=== PATIENT | male | born 1965 | race Caucasian/White ===

== ENCOUNTER 2022-05-21 08:30 | Outpatient (CLI) | payer BC, SELFPAY ==
[2022-05-21 13:45] LABS: Basophils Absolute Auto 0.04 K/uL (0.00-0.30); Basophils Percent Auto 0.6 % (0.0-3.0); Eosinophils Absolute Auto 0.14 K/uL (0.00-0.50); Eosinophils Percent Auto 2.2 % (0.0-7.0); Hematocrit 42.5 % (37.0-53.0); Hemoglobin* 14.6 gm/dL (13.5-17.5); Immature Granulocytes Abs Auto 0.02 K/uL (0.00-0.30); Lymphocytes Absolute Auto 1.72 K/uL (0.90-2.90); Mean Corpuscular HGB Conc 34 gm/dL (32-36); Mean Corpuscular Hemoglobin 30 pg (26-34); Mean Corpuscular Volume 88 fL (80-100); Monocytes Percent Auto 7.7 % (0.0-11.0); Neutrophils Absolute Auto 3.97 K/uL (1.7-7.0); Neutrophils Percent Auto 62.2 % (42.0-72.0); Platelet Count* 166 K/uL (140-440); RDW Coefficient of Variation % 13.4 % (11.5-15.5); Red Blood Count 4.84 m/uL (4.30-5.90); White Blood Count* 6.38 K/uL (4.50-11.00)
[2022-05-21 13:52] LABS: Slide Review Reflex No
[2022-05-21 14:03] LABS: Chloride* 106 mmol/L (96-114); Potassium* 4.6 mmol/L (3.6-5.1); Sodium* 141 mmol/L (135-149)
[2022-05-21 14:05] LABS: Cholesterol* 176 mg/dL (90-199)
[2022-05-21 14:06] LABS: Alanine Aminotransferase* 50 U/L (4-50); Blood Urea Nitrogen* 22 mg/dL (7-30); Calcium* 9.4 mg/dL (8.4-10.6); Carbon Dioxide* 27 mmol/L (20-32); Creatinine* 1.1 mg/dL (0.5-1.5); Estimated Glomerular Filt Rate 78 ml/min; Glucose* 88 mg/dL (60-115)
[2022-05-21 14:07] LABS: HDL Cholesterol* 33 mg/dL (>=40); LDL Cholesterol Calculated 61 mg/dL (<100)
[2022-05-21 14:10] LABS: Triglycerides* 408 mg/dL (40-149)
== END 2022-05-21 08:31 | disposition home or self-care (01) ==
PROVIDERS: PCP Family Medicine; Visit Provider Family Medicine
DX: Z01.818 Encounter for other preprocedural examination (principal); I10 Essential (primary) hypertension; E78.5 Hyperlipidemia, unspecified
CPT/HCPCS: 80048; 80061; 84460; 85025

== ENCOUNTER 2022-05-28 08:57 | Outpatient (CLI) | payer BC, SELFPAY ==
[2022-05-28 14:48] LABS: SARS PCR* Negative SARS-CoV-2 (Negative)
== END 2022-05-28 08:58 | disposition home or self-care (01) ==
PROVIDERS: PCP Family Medicine; Visit Provider Orthopaedic Surgery
DX: Z20.822 Contact with and (suspected) exposure to COVID-19 (principal)
CPT/HCPCS: 87635

== ENCOUNTER 2022-05-29 09:38 | Day surgery (SDC) | payer BC, SELFPAY ==
[2022-05-29] VITALS (15 sets, daily range): BP systolic 122–166; BP diastolic 67–99; PULSE 49–87; RESP 14–20; TEMP 36.2–36.5; O2SAT 88–99; BMI 33.8
[2022-05-29] MEDS: SODIUM CHLORIDE 0.9 % (FLUSH) 10 ML SYRINGE IVF (10:15)
[2022-05-29] MEDS: ETHYL CHLORIDE 1 APPLICATION 1 APPLIC TOPICAL (10:15)
[2022-05-29] MEDS: LACTATED RINGERS 1000 ML 1,000 ML 100 ML IV ×2 (10:15→12:01)
[2022-05-29] MEDS: CELECOXIB 200 MG CAPSULE PO (10:20)
[2022-05-29] MEDS: OXYCODONE (CR) 10 MG TAB.ER.12H PO (10:20)
[2022-05-29] MEDS: ACETAMINOPHEN 500 MG TABLET 1000 MG PO (10:20)
[2022-05-29] MEDS: fentaNYL 100 MCG/2 ML inj IVP (10:35)
[2022-05-29] MEDS: MIDAZOLAM HCL 1 MG/ML inj IVP (10:35)
--- NOTE | 2022-05-29 10:42 | W.PM.NB ---
Nerve Block Nerve Block Time Seen by Provider: 10:42 Date Seen: 05/29/22 Type of block requested by surgeon for post-operative analgesia: interscalene Side: left Time out performed: Yes Verification of patient name: Yes Verification of date of : Yes Site marking: site marked Name of person performing procedure: Deng Continuous monitoring Was continuous monitoring of O2 sat, B/P, awake overnight monitor, recorded every 15 minutes?: Yes Procedure Checklist: sterile prep, needles and gloves Ultrasound guided. Images saved: Yes Medications given in 5ml increments after negative aspiration: Ropivicaine %: 0.5 mL: 20 Needle gauge: 22 Decadron (mg): 10 Precedex (mcg): 25 Patient tolerated procedure well: Yes Block Charges Block Charge (with Pro Fee): Brachial Plexus Use of Ultrasound Machine for Block: Yes- US Guidance/pain block
--- NOTE | 2022-05-29 10:42 | SUR.PHASEII ---
TIME?OUT:?left shoulder, 1025 PT/RN/MDA?VERIFICATION?OF?SURGICAL?SITE,?PROCEDURE,?AND?CONSENT OBTAINED?PRIOR?TO?INVASIVE?PROCEDURE.
[2022-05-29] MEDS: SODIUM CHLORIDE IRRIG SOLUTION 3,000 ML, EPINEPHrine 1 MG IRRIGATION (12:34)
--- NOTE | 2022-05-29 13:07 | P.ORPRC_ITS ---
Procedure Note Date of procedure: 05/29/22 Procedure: SURGEON: Cooper Tejeda MD APARTMENT LEASING CONSULTANT: Juliet Aguirre PA-C PREOPERATIVE DIAGNOSIS: Left shoulder rotator cuff tear, biceps tendinopathy, AC joint arthrosis POSTOPERATIVE DIAGNOSIS: Left shoulder rotator cuff tear, biceps tendinopathy, AC joint arthrosis NAME OF OPERATION: Left shoulder arthroscopic subacromial decompression, distal clavicle excision, mini open rotator cuff repair, biceps tenodesis ANESTHESIA: Supraclavicular block plus general endotracheal ESTIMATED BLOOD LOSS: 5 mL COMPLICATIONS: None SPECIMENS: None DRAINS: None PREOPERATIVE ANTIBIOTICS: Ancef 2 grams INDICATIONS: The patient is a 56-year-old male with a history of left shoulder pain secondary to the above diagnoses. Despite appropriate non operative management, they continue to have symptoms. Operative intervention was recommended. The risks, benefits and expected outcomes were discussed in detail. These included but were not limited to: Infection, bleeding, injury to blood vessel or nerve, venous thromboembolism. All questions were answered to their satisfaction. PROCEDURE: A supraclavicular block was placed by Anesthesia. General anesthesia was administered. The patient was placed in the high beach chair position. The left shoulder was prepped and draped in the usual sterile fashion. The glenohumeral joint was infiltrated with 20 mL of normal saline with epinephrine. The posterior portal was established, the arthroscope was introd uced. The anterior portal was established, Diagnostic arthroscopy was performed with findings as follows: The biceps has a significant amount of intra-articular tendinopathy. The anterior, posterior and superior labrum are normal. Articular surfaces on the humeral head and glenoid are normal. There are no loose bodies. There is a full-thickness tear of the supraspinatus. The biceps was tenotomized with the arthroscopic scissors. The stump was debrided with the shaver. The arthroscope was placed in the subacromial space, the lateral portal was established. The Arthrex Largo was used to dissect the acromion free. The CA ligament was recessed off the anterior acromion, the AC joint was exposed. The acromioplasty was performed with the bur in the posterior portal. The bur was then placed in the lateral portal and the lateral and anterior aspect of the acromion were resected. The undersurface of the distal clavicle was resected through the lateral portal. Finally, the bur was placed in the anterior portal and the remainder of the distal clavicle was resected for a total of 10 mm. An accessory anterolateral portal was placed. The subacromial/subdeltoid bursa was aggressively debrided. There is a full-thickness tear of the supraspinatus. Arthroscopic instruments were removed. The accessory anterolateral portal was extended proximally and distally, subcutaneous dissection was taken with electrocautery to the deltoid. The deltoid was divided in line with its fibers. The static retractor was placed. The subacromial/subdeltoid bursa was debrided with the Peralta scissors. The insertion of the supraspinatus was elevated with the scalpel, posteriorly back to non degenerative rotator cuff. The greater tuberosity was debrided to punctate bleeding bone using the arthroscopic bur. A soft tissue biceps tenodesis was done with a # 2 FiberWire suture x2 Two Arthrex BioComposite SwiveLock anchors were placed just off the articular surface. Both limbs of the FiberWire and fiber tape were passed using the scorpion. A fiber link was placed in the leading edge of the rotator cuff x2. We tied the 2 central FiberWire sutures over the rotator cuff. We then procee ded with a lateral row of SwiveLock anchors x 2 crossing the FiberTape and incorporating the FiberWire and fiber link into each lateral row anchor. The suture in the eyelet of both the lateral row anchors was passed through the leading edge of the rotator cuff anteriorly and posteriorly and tied creating a simple suture. This provides an anatomic, watertight repair of the rotator cuff. There is no tension on the repair with the shoulder at 0? abduction. The wound was irrigated with normal saline off the pump. The deltoid was repaired with an 0 Vicryl in an interrupted [id number] fashion. Subcutaneous tissues were closed with a 3-0 Vicryl. Skin was closed with a 3-0 Monocryl in a subcuticular fashion. A dry dressing, polar care and sling were applied. Sponge and needle counts were correct x2. The patient tolerated the procedure well. There were no apparent complications. They were carefully transferred to the hospital bed and taken to the postanesthesia care unit in satisfactory condition. PLAN: The patient will be discharged to home. No active range of motion of the shoulder will be allowed for 6 weeks postoperatively. They can work on active range of motion of the elbow, wrist and fingers. They will follow up in the office next week for a wound check and an AP and transscapular Y-view of the shoulder prior to being seen.
--- NOTE | 2022-05-29 13:42 | W.ANESCHARGE ---
Anesthesia Charges Start Date/Time Anesthesia Start Date: 05/29/22 Anesthesia Start Time: 11:13 Stop Date/Time Anesthesia Stop Date: 05/29/22 Anesthesia Stop Time: 13:36 Summary Emergency: No
--- NOTE | 2022-05-29 13:58 | W.ANESCHARGE ---
Anesthesia Charges Start Date/Time Anesthesia Start Date: 05/29/22 Anesthesia Start Time: 11:13 Stop Date/Time Anesthesia Stop Date: 05/29/22 Anesthesia Stop Time: 13:36 Summary Emergency: No
== END 2022-05-29 15:33 | disposition home or self-care (01) ==
PROVIDERS: PCP Family Medicine; Visit Provider Orthopaedic Surgery
PROC: (CPT 23412; principal; 2022-05-29 11:00)
DX: M19.012 Primary osteoarthritis, left shoulder (principal); M75.22 Bicipital tendinitis, left shoulder; M75.122 Complete rotator cuff tear or rupture of left shoulder, not specified as traumatic
CPT/HCPCS: 29826; 29828; 29824; 23412; 1630; 64415; 76942; A9270; C1713; J0171; J0330; J0690; J1100; J2250; J2405; J2704; J2795; J3010; J7120; L3670

== ENCOUNTER 2022-09-16 06:23 | Day surgery (SDC) | payer BC, SELFPAY ==
[2022-09-16] VITALS (10 sets, daily range): BP systolic 138–158; BP diastolic 78–92; PULSE 65–74; RESP 14–18; TEMP 36.7; O2SAT 94–97; BMI 34.4
[2022-09-16] MEDS: BUPIVACAINE 0.5% 30 ML INJECTION (07:30)
[2022-09-16] MEDS: lidocaine HCL 2 % MULTIDOSE 20 ML VIAL INJECTION (07:30)
--- NOTE | 2022-09-16 07:50 | PM.ORPRC ---
Procedure Note Date of procedure: 09/16/22 Procedure: Preop diagnosis: Left upper extremity carpal tunnel syndrome Postop diagnosis: Left upper extremity carpal tunnel syndrome Procedure: Left upper extremity carpal tunnel release Anesthesia: Local Surgeon: Cooper Tejeda MD emergency room physician assistant: KOFFI Hernandez EBL: 5 mL Complications: None Specimens: None Drains: None Indications: The patient has a history of left upper extremity carpal tunnel syndrome symptoms. Despite appropriate nonoperative management consisting of nighttime bracing and occupational therapy they continue to have symptoms. Operative intervention was recommended. The risks, benefits alternatives and expected outcomes were discussed in detail. These included but were not limited to: Infection, bleeding, injury to blood vessel or nerve, venous thromboembolism. All questions were answered to their satisfaction. The patient was placed supine on the operating room table. Local anesthesia was established with 0.5% Marcaine without epinephrine and 2% lidocaine without epinephrine. The hand was prepped and draped in usual sterile fashion. The limb was elevated the forearm pneumatic tourniquet was inflated to 250 mm of mercury. A longitudinal incision was made centered over the radial border of the ring finger at the base of the palm. Subcutaneous dissection was sharply taken through the palmar fascia and the palmaris brevis to the transverse carpal ligament. The ligament was divided in line with the incision. Proximal and distal dissection was carried with tenotomy and Metzenbaum scissors for a wide decompression of the carpal tunnel. The tourniquet was released, bleeding was controlled with direct pressure. The wound was closed with a 3-0 nylon. A bulky dry dressing was applied, sponge and needle counts were correct x 2. The patient tolerated the procedure well, there were no apparent complications. They were sent to same day surgery in satisfactory condition. Plan: Use of the hand as tolerates. Discontinue the intraoperative dressing on postoperative day 3 and may get the wound wet as tolerates. Follow up in the office in 2 weeks for a wound check and suture removal.
== END 2022-09-16 08:18 | disposition home or self-care (01) ==
PROVIDERS: PCP Family Medicine; Visit Provider Orthopaedic Surgery
PROC: (CPT 64721; principal; 2022-09-16 07:30)
DX: G56.02 Carpal tunnel syndrome, left upper limb (principal)
CPT/HCPCS: 64721; J3490

== ENCOUNTER 2022-09-30 09:19 | Outpatient (CLI) | payer BC, SELFPAY ==
[2022-09-30 13:39] LABS: Chloride* 104 mmol/L (96-114); Sodium* 138 mmol/L (135-149)
[2022-09-30 13:40] LABS: Potassium* 4.7 mmol/L (3.6-5.1)
[2022-09-30 13:42] LABS: Alanine Aminotransferase* 36 U/L (4-50); Blood Urea Nitrogen* 20 mg/dL (7-30); Carbon Dioxide* 27 mmol/L (20-32); Cholesterol* 170 mg/dL (90-199); Creatinine* 1.1 mg/dL (0.5-1.5); Estimated Glomerular Filt Rate 77 ml/min
[2022-09-30 13:43] LABS: Calcium* 9.8 mg/dL (8.4-10.6); Glucose* 97 mg/dL (60-115); HDL Cholesterol* 34 mg/dL (>=40); LDL Cholesterol Calculated 42 mg/dL (<100)
[2022-09-30 14:13] LABS: PSA Screen* 0.36 ng/mL (0.10-4.00)
[2022-09-30 14:19] LABS: Triglycerides* 468 mg/dL (40-149)
[2022-10-04 18:02] LABS: Sex Hormone Binding Globulin 41 nmol/L (19-76); Testosterone, Free LC-MS/MS 75.3 pg/mL (47.0-244.0); Testosterone, LC-MS/MS 455 ng/dL (300-890)
== END 2022-09-30 09:20 | disposition home or self-care (01) ==
PROVIDERS: PCP Family Medicine; Visit Provider Family Medicine
DX: Z00.00 Encounter for general adult medical examination without abnormal findings (principal); E78.5 Hyperlipidemia, unspecified; I10 Essential (primary) hypertension; M10.9 Gout, unspecified; N52.9 Male erectile dysfunction, unspecified; Z12.5 Encounter for screening for malignant neoplasm of prostate
CPT/HCPCS: 80048; 80061; 84153; 84270; 84402; 84403; 84460

== ENCOUNTER 2022-12-17 07:05 | Outpatient (CLI) | payer BC, SELFPAY ==
--- NOTE | 2022-12-17 07:15 | CRLHL7_ITS ---
For Patients: As a result of the Century Cures Act, medical imaging exams and procedure reports are released immediately into your electronic medical record. You may view this report before your referring provider. If you have questions, please contact your health care provider. Indication: Chronic low back pain. Technique: Multiplanar, multisequence MRI of the lumbar spine was performed without intravenous contrast. Comparison: None relevant available. Findings: There are 5 lumbar type vertebral segments identified. The vertebral body heights are maintained without evidence of fracture. There is no discrete T1 hypointense marrow infiltrating process. The conus medullaris terminates at L1, normal. Cauda equina appears unremarkable. T12-L1: No spinal canal or neural foraminal stenosis. L1-2: No spinal canal or neural foraminal stenosis. L2-3: Mild disc height loss and desiccation. Mild disc bulge coupled ligamentum flavum thickening and facet hypertrophy resulting in mild spinal canal narrowing. Mild neural foraminal narrowing. L3-4: Moderate disc height loss and desiccation. Disc bulge with facet hypertrophy resulting in mild spinal canal narrowing. Moderate right and mild left neural foraminal narrowing. L4-5: Moderate disc height loss and desiccation. Disc bulge with superimposed central disc protrusion. There is mild spinal canal narrowing. Moderate to severe right and moderate left neural foraminal narrowing. Moderate facet arthropathy. L5-S1: Disc bulge with minimal spinal canal narrowing. Moderate neural foraminal narrowing. Moderate facet arthropathy. Mild sacroiliac joint osteoarthritis. Impression: 1. At L2-3, mild spinal canal and neural foraminal narrowing. 2. At L3-4, mild spinal canal with moderate right and mild left neural foraminal narrowing. 3. At L4-5, mild spinal canal with moderate to severe right and moderate left neural foraminal narrowing. Potential impingement of the exiting right L4 nerve. 4. At L5-S1, moderate neural foraminal narrowing. Dictated by Mark Gallegos MD @ 12/17/2022 3:00:24 PM (Electronically Signed)
--- NOTE | 2022-12-17 08:00 | CRLHL7_ITS ---
For Patients: As a result of the 21st Century Cures Act, medical imaging exams and procedure reports are released immediately into your electronic medical record. You may view this report before your referring provider. If you have questions, please contact your health care provider. HISTORY: Right and left hip pain. TECHNIQUE: Noncontrast MRI right hip. Noncontrast MRI left hip. COMPARISON: Radiographs 10/31/2022. FINDINGS: Right hip: Mild CAM morphology of the right proximal femur. There is extensive tearing of the acetabular labrum involving the anterior superior, superior lateral, posterior superior and posterior aspects of the labrum. There is grade 4 full-thickness acetabular cartilage loss anterosuperiorly with subchondral cystic change and subchondral bone marrow edema. Moderate femoral head cartilage wear (grade 2). There are paralabral cysts or periarticular ganglia present about the periphery of the superior lateral acetabulum. Mild capsular edema about the right hip. No avascular necrosis of the right femoral head. - Left hip: Mild CAM morphology of the left proximal femur. There is extensive acetabular labral tearing including the anterior, superior lateral and posterior superior labrum. There is high-grade acetabular cartilage loss anterosuperiorly with full-thickness grade 4 cartilage abnormality. High-grade chondromalacia of the adjacent anterior superior femoral head (up to grade 4). Small left hip joint effusion. There is synovitis within the hip joint space. No avascular necrosis of left femoral head. - Osseous structures: No fracture or pathologic marrow replacement process. - Musculotendinous structures and bursae: Mild peritendinous edema about the distal gluteal tendons bilaterally. No high-grade gluteal tendon tear. Tendinosis and chronic partial tearing of the right common hamstring tendon. Left common hamstring tendon is intact. The distal iliopsoas tendons are intact. - Other findings: Degenerative change of the pubic symphysis and sacroiliac joints. Degenerative changes within the lower lumbar spine. - Intrapelvic soft tissues: Enlarged prostate. No deep pelvic fluid collection. Colonic diverticulosis. IMPRESSION: 1. On the right, degenerative arthrosis of the hip. 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 Extensive labral tearing. Small paralabral cysts versus periarticular ganglion. Right hip joint capsular edema may indicate hip joint capsulitis. 2. On the left, degenerative arthrosis of the hip. Grade 4 chondromalacia of the anterior superior acetabulum and adjacent anterior superior femoral head. Extensive degenerative labral tearing. Small left hip joint effusion with synovitis. 3. Bilaterally, there is peritendinous edema associated with the distal gluteal tendons. No high-grade distal tendon tear. 4. Tendinosis of the right common hamstring tendon with partial tearing. 5. No fracture or avascular necrosis. Dictated by Corbin Mcknight MD @ 12/18/2022 2:36:39 PM (Electronically Signed)
--- NOTE | 2022-12-17 08:45 | MR_ITS ---
Patient: MARIA DEL ROSARIO GALLEGOS Facility:?[facility] Patient ID:?[id number] Site Patient ID:?[id number]. Site :?[id number] Study:?MRI-Hip Right W/O-12/17/2022 9:50:29 AM Ordering Physician:Gal Foy Final Report: HISTORY: Right and left hip pain. TECHNIQUE: Noncontrast MRI right hip. Noncontrast MRI left hip. COMPARISON: Radiographs 10/31/2022. FINDINGS: Right hip: Mild CAM morphology of the right proximal femur. There is extensive tearing of the acetabular labrum involving the anterior superior, superior lateral, posterior superior and posterior aspects of the labrum. There is grade 4 full-thickness acetabular cartilage loss anterosuperiorly with subchondral cystic change and subchondral bone marrow edema. Moderate femoral head cartilage wear (grade 2). There are paralabral cysts or periarticular ganglia present about the periphery of the superior lateral acetabulum. Mild capsular edema about the right hip. No avascular necrosis of the right femoral head. - Left hip: Mild CAM morphology of the left proximal femur. There is extensive acetabular labral tearing including the anterior, superior lateral and posterior superior labrum. There is high-grade acetabular cartilage loss anterosuperiorly with full-thickness grade 4 cartilage abnormality. High-grade chondromalacia of the adjacent anterior superior femoral head (up to grade 4). Small left hip joint effusion. There is synovitis within the hip joint space. No avascular necrosis of left femoral head. - Osseous structures: No fracture or pathologic marrow replacement process. - Musculotendinous structures and bursae: Mild peritendinous edema about the distal gluteal tendons bilaterally. No high-grade gluteal tendon tear. Tendinosis and chronic partial tearing of the right common hamstring tendon. Left common hamstring tendon is intact. The distal iliopsoas tendons are intact. - Other findings: Degenerative change of the pubic symphysis and sacroiliac joints. Degenerative changes within the lower lumbar spine. - Intrapelvic soft tissues: Enlarged prostate. No deep pelvic fluid collection. Colonic diverticulosis. IMPRESSION: 1. On the right, degenerative arthrosis of the hip. 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 Extensive labral tearing. Small paralabral cysts versus periarticular ganglion. Right hip joint capsular edema may indicate hip joint capsulitis. 2. On the left, degenerative arthrosis of the hip. Grade 4 chondromalacia of the anterior superior acetabulum and adjacent anterior superior femoral head. Extensive degenerative labral tearing. Small left hip joint effusion with synovitis. 3. Bilaterally, there is peritendinous edema associated with the distal gluteal tendons. No high-grade distal tendon tear. 4. Tendinosis of the right common hamstring tendon with partial tearing. 5. No fracture or avascular necrosis. Dictated by Corbin Mcknight MD @ 12/18/2022 2:36:39 PM Signed by:?Corbin Mcknight MD @12/18/2022 2:37:20 PM (Electronic Signature)
== END 2022-12-17 07:06 | disposition home or self-care (01) ==
LOC: MRI 07:06
PROVIDERS: PCP Family Medicine; Visit Provider Family Medicine
DX: M25.551 Pain in right hip (principal); M25.552 Pain in left hip; M16.0 Bilateral primary osteoarthritis of hip; M16.12 Unilateral primary osteoarthritis, left hip; S73.101A Unspecified sprain of right hip, initial encounter; M25.452 Effusion, left hip; M76.891 Other specified enthesopathies of right lower limb, excluding foot; M51.26 Other intervertebral disc displacement, lumbar region; M54.50 Low back pain, unspecified; G89.29 Other chronic pain; M51.27 Other intervertebral disc displacement, lumbosacral region
CPT/HCPCS: 72148; 73721

== ENCOUNTER 2023-01-15 08:08 | Outpatient (CLI) | payer BC, SELFPAY | END 2023-01-15 08:09 | disposition home or self-care (01) | PROVIDERS: PCP Family Medicine; Visit Provider Family Medicine | DX: Z01.818 Encounter for other preprocedural examination (principal); E78.5 Hyperlipidemia, unspecified; M10.9 Gout, unspecified; I10 Essential (primary) hypertension | CPT/HCPCS: 80048; 85025 ==

== ENCOUNTER 2023-01-19 15:03 | Outpatient (RCR) | payer BC, SELFPAY ==
--- NOTE | 2023-01-20 08:54 | PT.OPEX ---
PT [facility] Eval PT [facility] Outpatient Eval Start: 01/19/23 14:10 Freq: Status: Active Protocol: Document 01/19/23 16:46 [facility] (Rec: 01/19/23 16:56 [facility] [id number]) E-signed By Matthias Stuart, PT Physical Therapy Outpatient Evaluation Insurance Information Medical Diagnosis Bilateral primary hip OA Treating Diagnosis bilateral hip pain hip stiffness muscle weakness Referring MD Dr. 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 He is a small, so is getting both hips replaced at same time to be able to return to work joel. 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 He mostly wanted instruction in HEP to perform to help make his recovery easier. He has acquired most of the needed post-op equipment and will have help from his and daughter upon discharge to his [facility] home. He plans to f/u with outpatient PT post-op at [facility] in [place] Primary Functional Limitations ambulation, squatting, bending over, heavy lifting, work as a small Plan of Care Rehabilitation Potential Excellent Physical Therapy Goals In one visit, for pre-op rehab , pt will: 1) Be I with pre-op HEP: goal met 2) Demo understanding of post- op recovery and equipment needs/safety concerns: goal met Coordination/Communication With Referral Source Treatment Plan/Direct Interventions Self-Care/Home Management, Therapeutic Exercises Frequency/Duration 1 time only Patient Will Be Discharged From Therapy Independent w/HEP Evaluation Billing Untimed Code Treatment Minutes 20 Complexity Low Certification Information Physician Comment/Change : Physician NPI Number #
== END 2023-01-20 14:36 | disposition home or self-care (01) ==
PROVIDERS: PCP Family Medicine; Visit Provider Orthopaedic Surgery Sports Medicine
DX: M16.0 Bilateral primary osteoarthritis of hip (principal); Z96.643 Presence of artificial hip joint, bilateral; M25.552 Pain in left hip; M25.551 Pain in right hip; M25.659 Stiffness of unspecified hip, not elsewhere classified; M62.81 Muscle weakness (generalized); Z51.89 Encounter for other specified aftercare
CPT/HCPCS: 97110; 97161; 97535

== ENCOUNTER 2023-01-31 09:01 | Outpatient (CLI) | payer BC, SELFPAY | END 2023-01-31 09:02 | disposition home or self-care (01) | PROVIDERS: PCP Family Medicine; Visit Provider Orthopaedic Surgery Sports Medicine | DX: Z01.818 Encounter for other preprocedural examination (principal) | CPT/HCPCS: 36415; 86850; 86900; 86901 ==

== ENCOUNTER 2023-02-03 11:36 | Inpatient (IN) | payer BC, SELFPAY ==
[2023-02-02] VITALS (28 sets, daily range): BP systolic 79–149; BP diastolic 46–93; PULSE 63–99; RESP 14–18; TEMP 35.3–36.4; O2SAT 93–100; BMI 30.9
--- NOTE | 2023-02-02 08:10 | CRLHL7_ITS ---
For Patients: As a result of the Cures Act, medical imaging exams and procedure reports are released immediately into your electronic medical record. You may view this report before your referring provider. If you have questions, please contact your health care provider. Indication: s/p Total hip arthroplasty Technique: AP hip centered pelvis and lateral view right hip Findings/Impression: Hardware from a right total hip arthroplasty is in satisfactory position. Bone alignment is normal. No sign of acute fracture. Postop changes are within normal limits. Dictated by Law Darden MD @ 02/02/2023 3:41:09 PM (Electronically Signed)
--- NOTE | 2023-02-02 08:10 | CRLHL7_ITS ---
For Patients: As a result of the Cures Act, medical imaging exams and procedure reports are released immediately into your electronic medical record. You may view this report before your referring provider. If you have questions, please contact your health care provider. Indication: s/p Total hip arthroplasty Technique: AP hip centered pelvis and lateral view left hip Findings/Impression: Hardware from a left total hip arthroplasty is in satisfactory position. Bone alignment is normal. No sign of acute fracture. Postop changes are within normal limits. Dictated by Law Darden MD @ 02/02/2023 3:40:42 PM (Electronically Signed)
[2023-02-02] MEDS: CELECOXIB 200 MG CAPSULE PO ×2 (08:55→20:28)
[2023-02-02] MEDS: LACTATED RINGERS 1000 ML 1,000 ML 100 ML IV (08:55)
[2023-02-02] MEDS: ACETAMINOPHEN 500 MG TABLET 1000 MG PO (08:55)
--- NOTE | 2023-02-02 09:30 | CRLHL7_ITS ---
For Patients: As a result of the Cures Act, medical imaging exams and procedure reports are released immediately into your electronic medical record. You may view this report before your referring provider. If you have questions, please contact your health care provider. Indication: Hip replacement surgery Technique: AP hip fluoroscopic image. Fluoroscopy time 28.6 seconds. Findings/Impression: Hardware from a right total hip arthroplasty is in satisfactory position. Dictated by Law Darden MD @ 02/02/2023 12:07:33 PM (Electronically Signed)
--- NOTE | 2023-02-02 09:30 | CRLHL7_ITS ---
For Patients: As a result of the Cures Act, medical imaging exams and procedure reports are released immediately into your electronic medical record. You may view this report before your referring provider. If you have questions, please contact your health care provider. Indication: Hip replacement surgery Technique: AP hip fluoroscopic image. Fluoroscopy time 47.2 seconds. Findings/Impression: Hardware from a left total hip arthroplasty is in satisfactory position. Dictated by Law Darden MD @ 02/02/2023 2:41:55 PM (Electronically Signed)
[2023-02-02] MEDS: MIDAZOLAM HCL 1 MG/ML inj IVP (09:35)
[2023-02-02] MEDS: fentaNYL 100 MCG/2 ML inj IVP (09:35)
--- NOTE | 2023-02-02 09:47 | SUR.PREOP ---
TIME?OUT:?0933 PT/RN/MDA?VERIFICATION?OF?SURGICAL?SITE,?PROCEDURE,?AND?CONSENT OBTAINED?PRIOR?TO?INVASIVE?PROCEDURE.
[2023-02-02] MEDS: CEFAZOLIN 2 GM in 0.9 % SODIUM CHLORIDE Mini-bag 100 ML IVPB ×2 (10:00→17:49)
--- NOTE | 2023-02-02 10:09 | P.NB_ITS ---
Nerve Block Nerve Block Time Seen by Provider: 09:38 Date Seen: 02/02/23 Type of block requested by surgeon for post-operative analgesia: DAVID/LFCN Side: bilateral Time out performed: Yes Verification of patient name: Yes Verification of date of : Yes Site marking: site marked Name of person performing procedure: Deng Continuous monitoring Was continuous monitoring of O2 sat, B/P, manager monitoring, recorded every 15 minutes?: Yes Procedure Checklist: sterile prep, needles and gloves Ultrasound guided. Images saved: Yes Medications given in 5ml increments after negative aspiration: Marcaine %: 0.25 mL: 40 Needle gauge: 20 and Exparel mL: 20 Needle gauge: 20 Patient tolerated procedure well: Yes Additional comments: Needle noted below psoas tendon needle noted adjacent to LFCN Block Charges Block Charge (with Pro Fee): Other Periph Nerve Block Use of Ultrasound Machine for Block: Yes- US Guidance/pain block
--- NOTE | 2023-02-02 10:09 | W.ANESCHARGE ---
Anesthesia Charges Start Date/Time Anesthesia Start Date: 02/02/23 Anesthesia Start Time: 09:45 Stop Date/Time Anesthesia Stop Date: 02/02/23 Anesthesia Stop Time: 14:35
--- NOTE | 2023-02-02 13:45 | PM.ORPRC ---
Procedure Note Date of procedure: 02/02/23 Procedure: PREOPERATIVE DIAGNOSIS: 1. Bilateral hip osteoarthritis, severe, primary POSTOPERATIVE DIAGNOSIS: 1. Bilateral hip osteoarthritis, severe, primary PROCEDURE: 1. Bilateral total hip arthroplasty-anterior approach 2. 41334 - intraoperative fluoroscopy greater than 1 hour. SURGEON: Matthieu Salamanca MD. SR TECHNICAL SALES CONSULTANT: [ Fercho Reddy PA-C; REANNA Reid] - Of note, a skilled assistant printer floor covering was critical for this case to aid in patient positioning, tissue retraction, limb manipulation/positioning, and closure. ANESTHESIA: general endotracheal anesthetic EBL: 400 mL on the right side; 265.5 mL on the left side. IMPLANTS: DePuy J&J uncemented total hip (*implant sizes were the same /uniform/symmetric bilaterally) [place] cup size 54, hole eliminator, +4 neutral liner Actis stem, standard offset, size 10 +5 mm ceramic 36mm head COMPLICATIONS: None evident INDICATIONS: The patient is a pleasant 57-year-old male who has experienced severe bilateral hip pain and difficulty bearing weight. Workup included x-rays which revealed some osteoarthritic changes but MRIs were obtained revealed more significant full-thickness chondromalacia of bilaterally hips. Given the deformity, the dysfunction, and the pain, as well as the failure of nonoperative management, recommendation was made for surgery. FINDINGS: Moderate to large effusion upon entering each joint. Abundant synovitis noted bilaterally. Marginal osteophytes around the femoral head / neck junction bilaterally. Significant chondromalacia femoral heads, left greater than right. No significant cystic changes seen within the acetabulae. DESCRIPTION OF PROCEDURE: Following a thorough discussion of risks, benefits, and alternatives consent was obtained and the right hip was marked. The patient was brought to the operating room and placed supine on the operating table. Induction of anesthesia was undertaken. 2 g IV Ancef and 1 g tranexamic acid was administered within 1 hr of incision preoperatively. Proper time-out was performed identifying proper patient, site (bilateral hips), and procedures. The operative extremity was prepped and draped in the appropriate sterile fashion using ChloraPrep after the patient was positioned on the [place] table with head in neutral alignment and all bony prominences well padded. C-arm fluoroscopic imaging was utilized to confirm proper pelvis rotation and position, and to get true AP films of both the contralateral left, and the affected bilateral hips. This is for comparison. We began on the right side: A longitudinal incision was made starting approximately 1 cm distal to the ASIS, and 3-4 cm lateral. The incision was extended distally aiming toward the lateral border the patella. Sharp incision through skin and bovie cautery through the subcutaneous tissue allowed identification of the TFL fascia. This was sharply divided, and the fascia bluntly released from the muscle fibers as we dissected medial. Upon coming to the medial border, we were able to retract the TFL laterally, and penetrated the deeper fascia and identify the crossing circumflex vessels. These were ligated/cauterized. The rectus was elevated from the capsule, and retractors placed laterally and medially along the femoral neck to help with visualization of the capsule. We then performed an inverted T capsulotomy. The capsule was tagged for later repair. Retractors were placed inside the capsule. The femoral neck was visualized after releasing medially down to the lesser trochanter, along the saddle laterally, and up onto the acetabulum. The femoral neck cut was made in line with our preoperative templating. The head was removed in a single piece, and sized. We turned our attention to acetabular preparation. Initially, the labrum was resected from around the perimeter, the pulvinar was excised, allowing us to visualize the false wall. We started the reaming with a 43 mm reamer. This was medialized down to the true wall. We then enlarged our reamers sequentially up to one size less than the selected cup size. We trialed at the same size and found it to have an excellent fit. The selected cup was then opened, inserted, and impacted in line with the goal of 40? of abduction, and 20-25? of anteversion. This was confirmed on C-arm fluoroscopic imaging to be in the appropriate/goal position. Once the cup was placed we placed a hole eliminator and a liner consistent with preop planning. Attention was turned to the femoral preparation. The limb was extended, externally rotated, and adducted. The posteromedial capsule was released, as retractors were placed allowing excellent access to the proximal femur. Initially a gill box operator was followed by canal finder followed by various broaches. We broached sequentially up to the size noted above, found it to have excellent rotational control, and trialing various heads and necks, revealed that appropriate neck offset, and the above noted head size provided the greatest stability, and sikh of length, and offset. C-arm fluoroscopic imaging confirmed position of the stem, as well as leg lengths, which were compared with the pre procedure all fluoroscopic images. Trial implants were removed, the real femoral stem inserted, as was the appropriate head. After reducing, the leg was placed through range of motion and stability was confirmed anterior, posterior, and lateral. A 3 min Betadine soak was then performed, and thorough irrigation with normal saline followed. Closure of the capsule was performed with #1 PDS. Bleeding was confirmed to be controlled at this stage, and the TFL fascia was closed with #0 strata fix. Subcutaneous, and subcuticular closure was performed with 2-0 Vicryl and 4-0 Monocryl, respectively. Dressings were applied. We then turned our attention to the Left hip: The same process was undertaken including sterile prep and drape, surgical dissection/approach, acetabular preparation with real implant insertion, followed by femoral preparation, trialing, assessment of leg length, offset, etc., and finally real implant insertion. Again, C-arm fluoroscopic imaging was utilized throughout the case to confirm proper implant position, leg lengths, etc.. Blood loss was slightly greater on the right compared to the left at 400 mL on the right and 265.5 mL on the left. no complications were encountered throughout the procedures. After dressing application on the left hip the patient was awoken from anesthesia and transferred the PACU in stable condition. * of note, these are too distinctly separate procedures with completely different set ups, preparation, dissection, trialing, implantation, Incision location, etc.. The time for each hip was consistent with a typical hip replacement thus making this procedure 2 times the length of a standard hip replacement. A skilled assistant printer floor covering was critical for this case to aid in patient positioning, tissue retraction, acetabular and proximal femoral exposure, limb manipulation/positioning, dislocation/relocation, patient safety, and closure. PLAN: 1. Weight bear as tolerated operative extremity. 2. 23 hr perioperative antibiotics. 3. Ice. 4. PT/OT consults for ambulation assistance/mobility education. 5. Social work consult for discharge planning. 6. DVT prophylaxis with at SCDs, Neal Hose, and Xarelto x5 days followed by aspirin for a total of 1 month..
[2023-02-02] MEDS: fentaNYL 100 MCG/2 ML inj 50 MCG IVP ×3 (14:43→15:05)
--- NOTE | 2023-02-02 14:46 | W.ANESCHARGE ---
Anesthesia Charges Start Date/Time Anesthesia Start Date: 02/02/23 Anesthesia Start Time: 09:45 Stop Date/Time Anesthesia Stop Date: 02/02/23 Anesthesia Stop Time: 14:35
--- NOTE | 2023-02-02 14:52 | SUR.PHASEI ---
xray here for ap/lat luz hips
[2023-02-02] MEDS: HYDROmorphone 0.5 mg/0.5 ml inj IVP ×3 (15:19→17:12)
--- NOTE | 2023-02-02 15:25 | SUR.PHASEI ---
pt needed to be put in trendelumbery for lower bps, iv fluids given pt returned to bed flat and bp 86/52
[2023-02-02] MEDS: PHENYLEPHRINE 100 MCG/ML SYRINGE IVP ×2 (15:28→15:32)
--- NOTE | 2023-02-02 15:29 | SUR.PHASEI ---
tallier into see pt and gave 100mcg of phenylephrine bp 86/52
[2023-02-02] MEDS: LACTATED RINGERS 1000 ML 1,000 ML 500 ML IV (15:54)
[2023-02-02] MEDS: HYDROCODONE-ACETAMIN 5-325 MG 1 TAB PO ×2 (17:14→22:45)
[2023-02-02 18:17] LABS: Hemoglobin* 10.7 gm/dL (13.5-17.5)
--- NOTE | 2023-02-02 19:02 | P.IMCN_ITS ---
Date of Consult Patient: [facility] Patient Consult date: 02/02/23 Requesting Physician: Orthopedics Primary Care Provider: Law Carolina MD Consult Narrative Reason for consult: Management of medical problems after hip replacement Narrative: Law Srinivasan is a 57 year old male admitted to the hospital for bilateral total hip arthroplasty performed by Dr. Salamanca. There were no complications. Estimated blood loss during surgery from both hips totaled 665 mL. Postoperatively he is hypotensive and mildly sedated. He reports bilateral hip pain which is adequately managed at this time. Preoperatively he has been doing well. He has not had significant medical problems recently. In October he developed unusual dyspnea when trying to get his daughter's car out of a snowbank. He ended up getting cardiac evaluation for this. CT coronary angiogram showed mild small-vessel disease. He has a very strong family history of coronary artery disease. He subsequently has been doing well. Other than his hip pain he has no other concerns. Review of Systems Narrative: No recent illness or injury. Review of systems otherwise unremarkable. [facility] Medical History (Updated 02/02/23 @ 19:15 by Norman Mina MD) Angina pectoris ?I20.9 - Angina pectoris, unspecified (ICD-10) Coronary artery disease (2012) ?I25.10 - Atherosclerotic heart disease of [place] coronary artery without angina pectoris (ICD-10) Erectile dysfunction ?N52.9 - Male erectile dysfunction, unspecified (ICD-10) Femoroacetabular impingement of both hips ?M25.851 - Other specified joint disorders, right hip (ICD-10) ?M25.852 - Other specified joint disorders, left hip (ICD-10) Gout ?M10.9 - Gout, unspecified (ICD-10) Hyperlipidemia ?E78.5 - Hyperlipidemia, unspecified (ICD-10) Hypertension ?I10 - Essential (primary) hypertension (ICD-10) Lumbar degenerative disc disease ?M51.36 - Other intervertebral disc degeneration, lumbar region (ICD-10) Obstructive sleep apnea syndrome (2007) ?G47.33 - Obstructive sleep apnea (adult) (pediatric) (ICD-10) Overactive bladder ?N32.81 - Overactive bladder (ICD-10) Surgical History (Updated 02/02/23 @ 19:10 by Norman Mina MD) History of carpal tunnel release ?Z98.890 - Other specified postprocedural states (ICD-10) History of vasectomy (12/17/00) ?Z98.52 - Vasectomy status (ICD-10) Status post anal fissurectomy ?Z98.890 - Other specified postprocedural states (ICD-10) ?Z87.19 - Personal history of other diseases of the digestive system (ICD-10) Status post arthroscopy of knee (1987) ?Z98.890 - Other specified postprocedural states (ICD-10) Status post arthroscopy of left shoulder (2015) ?Z98.890 - Other specified postprocedural states (ICD-10) Status post carpal tunnel release ?Z98.890 - Other specified postprocedural states (ICD-10) Status post rotator cuff repair (05/29/22) ?Z98.890 - Other specified postprocedural states (ICD-10) Status post tonsillectomy and adenoidectomy (2003) ?Z90.89 - Acquired absence of other organs (ICD-10) Family History Father COPD (chronic obstructive pulmonary disease) Mother Heart disease, Onset Age: 57 Brother Heart disease Sister Heart disease Social History (Updated 02/02/23 @ 19:11 by Norman Mina MD) Narrative: -Kareen, 4 kids, non-smoker, social EtOH-2 drinks per week, staci. Lives in [place] with his . He can live on 1 level in his home. Smoking Status: Never smoker Do you use any of these nicotine containing products: None How often do you have a drink containing alcohol: 2-4 times a month Alcohol type: beer How many standard drinks containing alcohol do you have on a typical day: 1 or 2 How often do you have six or more drinks on one occasion: Never AUDIT-C Alcohol total score: 2 Non-prescribed substance use: denies use Caffeine: Yes (occ pop) Little interest or pleasure in doing things: not at all Feeling down, depressed, or hopeless: not at all service: Yes ([employer]) Meds Home Medications and Allergies Home Medications Medication Instructions Recorded Confirmed Type aspirin 325 mg tablet,delayed 325 mg PO DAILY 05/19/22 02/02/23 History release cholecalciferol (vitamin D3) 125 5,000 unit PO DAILY 05/19/22 02/02/23 History mcg (5,000 unit) tablet Home Medication Comments: Preoperatively he has held aspirin, ibuprofen, vitamin D. last dose of lisinopril was last evening. He takes all his medications in the evening. Allergies Allergy/AdvReac Type Severity Reaction Status Date / Time oxycodone Allergy Mild Rash Verified 02/02/23 08:05 Penicillins Allergy Verified 02/02/23 08:05 [id number] Reductase Allergy Verified 02/02/23 08:05 Inhibitor Exam Narrative: Exam Narrative: He is tired appearing and somewhat sedated. He does arouse to voice and is able to give his history. Seen today with his . She corroborates his history. Head is without trauma. Eyes normal. Oropharynx with small airway. Neck is supple out mass or adenopathy. Respirations are clear to auscultation. Cardi ovascular: S1, S2, regular rate and rhythm. No murmur gallop or rub. Abdomen: Bowel sounds active. Abdomen is soft without tenderness or mass. External genitalia normal. Extremities with bandages over both hips without significant drainage swelling or erythema. His intact pulses and sensation distally. Fingers are somewhat cool to touch. Sluggish capillary refill. No edema. Const: Vital Signs, click to edit/add: Vital Signs - 24 hr 02/02/23 08:26 02/02/23 09:35 02/02/23 09:40 Temperature 97.6 F Pulse Rate 71 65 69 Pulse Rate [Pulse Oximeter] Respiratory Rate 16 16 16 Blood Pressure 141/93 H 108/56 L 149/84 H Blood Pressure [Ri ght Arm] Pulse Oximetry 98 98 98 Oxygen Delivery Me thod Room Air Nasal Cannula Nasal Cannula Oxygen Flow Rate 2 2 02/02/23 14:35 02/02/23 14:40 02/02/23 14:45 Temperature 97.6 F Pulse Rate 80 74 72 Pulse Rate [Pulse Oximeter] Respiratory Rate 18 18 18 Blood Pressure 102/60 82/49 L 93/50 L Blood Pressure [Ri ght Arm] Pulse Oximetry 97 96 95 Oxygen Delivery Me thod Nasal Cannula Nasal Cannula Nasal Cannula Oxygen Flow Rate 3 3 3 02/02/23 14:50 02/02/23 14:55 02/02/23 15:00 Temperature Pulse Rate 72 72 71 Pulse Rate [Pulse Oximeter] Respiratory Rate 18 18 18 Blood Pressure 84/46 L 79/63 L 98/56 L Blood Pressure [Ri ght Arm] Pulse Oximetry 95 95 98 Oxygen Delivery Me thod Nasal Cannula Nasal Cannula Nasal Cannula Oxygen Flow Rate 3 3 3 02/02/23 15:05 02/02/23 15:10 02/02/23 15:15 Temperature 97.6 F 97.4 F L Pulse Rate 71 71 77 Pulse Rate [Pulse Oximeter] Respiratory Rate 18 18 18 Blood Pressure 86/57 L 96/55 L 90/48 L Blood Pressure [Ri ght Arm] Pulse Oximetry 98 98 98 Oxygen Delivery Me thod Nasal Cannula Nasal Cannula Nasal Cannula Oxygen Flow Rate 3 3 3 02/02/23 15:20 02/02/23 15:23 02/02/23 15:26 Temperature Pulse Rate 77 80 80 Pulse Rate [Pulse Oximeter] Respiratory Rate 18 18 18 Blood Pressure 93/65 89/53 L 86/52 L Blood Pressure [Ri ght Arm] Pulse Oximetry 98 100 99 Oxygen Delivery Me thod Nasal Cannula Nasal Cannula Nasal Cannula Oxygen Flow Rate 3 3 3 02/02/23 15:30 02/02/23 15:32 02/02/23 15:35 Temperature 97.4 F L 96.1 F L Pulse Rate 71 70 82 Pulse Rate [Pulse Oximeter] Respiratory Rate 18 18 14 Blood Pressure 99/50 L 101/62 Blood Pressure [Ri ght Arm] 96/57 L Pulse Oximetry 95 99 Oxygen Delivery Me thod Nasal Cannula Nasal Cannula Nasal Cannula Oxygen Flow Rate 3 3 3 02/02/23 15:45 02/02/23 16:30 02/02/23 16:00 Temperature 95.8 F L Pulse Rate Pulse Rate [Pulse Oximeter] 79 83 63 Respiratory Rate 14 14 14 Blood Pressure Blood Pressure [Ri ght Arm] 100/51 L 88/54 L 90/53 L Pulse Oximetry 99 97 94 Oxygen Delivery Me thod Nasal Cannula Nasal Cannula Nasal Cannula Oxygen Flow Rate 2 2 1 02/02/23 16:15 02/02/23 17:00 02/02/23 17:30 Temperature 95.5 F L 95.5 F L Pulse Rate Pulse Rate [Pulse Oximeter] 65 75 68 Respiratory Rate 14 16 16 Blood Pressure Blood Pressure [Ri ght Arm] 97/52 L 96/68 115/59 L Pulse Oximetry 99 98 99 Oxygen Delivery Me thod Nasal Cannula Nasal Cannula Nasal Cannula Oxygen Flow Rate 2 1 02/02/23 18:00 Temperature Pulse Rate Pulse Rate [Pulse Oximeter] 69 Respiratory Rate 16 Blood Pressure Blood Pressure [Ri ght Arm] 95/59 L Pulse Oximetry 93 Oxygen Delivery Me thod Nasal Cannula Oxygen Flow Rate 1 Documenting provider has reviewed patient's vital signs: yes Labs Labs: Short CBC 02/02/23 Range/Units 18:12 Hgb 10.7 L (13.5-17.5) gm/dL Assessment and Plan Assessment and plan (1) Bilateral hip joint arthritis: Problem comment: Status post bilateral total hip arthroplasty 02/02/2023 with July Status: Acute (2) Blood loss anemia: Problem comment: Hypotension and blood loss anemia due to bilateral hip surgery. Fluid resuscitation and blood if necessary. Hold antihypertensives. Status: Acute (3) Postoperative hypotension: Problem comment: Likely due to blood loss. Fluid and blood resuscitation as needed Status: Acute (4) Obstructive sleep apnea syndrome: Problem comment: Monitor respiratory status with resuscitation, blood loss, pain medications Status: Acute Plan Anticipate some issues with low blood pressure, poor urine output due to blood loss. Possibly problems with sleep apnea. Possibly problems with pain management. Likely issues with mobility. Total time spent today is 50 minutes, 30 minutes in coordination of care discussing with patient and other providers management of postoperative hypotension, blood loss and rehabilitation
--- NOTE | 2023-02-02 19:04 | PC.NURSE ---
Pt A&O but sleepy. Upon arivial pt was rating his pain a 3/10 but stated he was very uncomfortable PRN IV pain medication given with relief. Rating pain 3-5/10 both hips, PRN medications given with relief. Blood pressure dropped to 88/54, MD notified, once bolus ordered, obtained and given. Pressures since systolic 95 and greater, MD OK with pressures. Cristiane hugger applied. Tolerating regular diet. Dressings c/d/i to both hips. 1 L O2 applied sats 88% on RA.
[2023-02-02] MEDS: SENNOSIDES 1 TAB TABLET 2 TAB PO (20:28)
[2023-02-02] MEDS: LACTATED RINGERS 1000 ML 1,000 ML 75 ML IV (22:45)
[2023-02-02] MEDS: 0.9 % SODIUM CHLORIDE 500 ML IV (23:54)
[2023-02-02] MEDS: ONDANSETRON 2 MG/ML inj 4 MG IVP (23:54)
[2023-02-03] VITALS (7 sets, daily range): BP systolic 104–128; BP diastolic 59–75; PULSE 77–98; RESP 16–18; TEMP 36.7–37.2; O2SAT 90–98
[2023-02-03] MEDS: HYDROmorphone 0.5 mg/0.5 ml inj IVP (00:26)
[2023-02-03] MEDS: hydrOXYzine pamoate 25 MG CAPSULE PO ×6 (00:27→21:45)
[2023-02-03] MEDS: CEFAZOLIN 2 GM in 0.9 % SODIUM CHLORIDE Mini-bag 100 ML IVPB ×2 (00:33→10:46)
[2023-02-03] MEDS: HYDROCODONE-ACETAMIN 5-325 MG 1 TAB PO ×4 (05:05→19:40)
[2023-02-03 07:00] LABS: Hemoglobin* 8.9 gm/dL (13.5-17.5); Immature Granulocytes Abs Auto 0.04 K/uL (0.00-0.30); Immature Granulocytes Pct Auto 0.4 %; Lymphocytes Percent Auto 8.8 % (20-44); Mean Corpuscular HGB Conc 33 gm/dL (32-36); Mean Corpuscular Hemoglobin 29 pg (26-34); Mean Corpuscular Volume 88 fL (80-100); Monocytes Percent Auto 7.9 % (0.0-11.0); Neutrophils Percent Auto 82.9 % (42.0-72.0); Platelet Count* 211 K/uL (140-440); RDW Coefficient of Variation % 14.4 % (11.5-15.5); Red Blood Count 3.08 m/uL (4.30-5.90); White Blood Count* 10.28 K/uL (4.50-11.00)
--- NOTE | 2023-02-03 07:11 | PC.NURSE ---
19-07: pleasant and cooperative. A x 1 with gb and walker. Pt very dizzy and nauseas when he stood up for the first time at bedside to use urinal. BP dropped to 69/54, 500ml bolus given, pt placed in Trendelenburg, zofran given, offered relief. Bladder scanned at 2200, 60-100mL urine, encouraged pt to drink fluids. Since IV bolus pt able to stand again at bedside without dizziness, BP 110/64 while standing. Rating pain 4/10, see eMAR. Pt able to urinate 100ml x3, post void bladder scan 320mL.
[2023-02-03 07:12] LABS: Slide Review Reflex No
[2023-02-03 07:14] LABS: Potassium* 4.9 mmol/L (3.6-5.1); Sodium* 130 mmol/L (135-149)
[2023-02-03 07:17] LABS: Creatinine* 1.2 mg/dL (0.5-1.5); Est. Creatinine Clearance* 64.13; Estimated Glomerular Filt Rate 70 ml/min
[2023-02-03 07:18] LABS: Blood Urea Nitrogen* 30 mg/dL (7-30)
[2023-02-03] MEDS: SENNOSIDES 1 TAB TABLET 2 TAB PO ×2 (08:00→20:58)
[2023-02-03] MEDS: CELECOXIB 200 MG CAPSULE PO ×2 (08:00→20:58)
[2023-02-03] MEDS: RIVAROXABAN 10 MG TABLET PO (08:00)
[2023-02-03] MEDS: SODIUM CHLORIDE 0.9 % (FLUSH) 10 ML SYRINGE IVF ×2 (08:01→20:59)
[2023-02-03] MEDS: allopurinoL 300 MG TABLET PO (08:01)
[2023-02-03] MEDS: MAG HYDROX/ALUMINUM HYD/SIMETH 30 ML ORAL.SUSP PO ×2 (09:29→17:43)
--- NOTE | 2023-02-03 10:02 | PM.ORPN ---
Subjective Subjective Date Seen: 02/03/23 Principal diagnosis: Status postop day 1, bilateral total hip arthroplasty - anterior approach Interval history: Patient reports doing better this morning; tired after PT, which went well. Denies any further lightheadedness/dizziness, which was an issue soon after surgery on 02/02/2023, due to blood loss anemia resulting in near syncopal episode. Pain managed with scheduled/PRN medications and ice. Reports that his right hip hurts more. DVT prophylaxis rivaroxaban, bilateral knee high Neal stockings, and SCDs. Denies fevers, chills, aches, N/V, CP, SOB/SAL, tachycardia. Ortho Exam Narrative Exam Narrative: -Patient appears comfortable in recliner; appears tired post PT session; no apparent acute distress -Alert and oriented times 3 -Operative hips mild-moderately swollen; soft tissues supple; no obvious erythema. No ecchymosis. Warmth appropriate -Surgical dressings clean, dry, intact; no obvious drainage, no erythematous streaking peripheral to the bandage -Bilateral calves soft and supple; no significant swelling, edema, tenderness, erythema, discoloration, warmth, or palpable cords -2+ DP/PT pulses, intact dermatomes and myotomes distally (5/5 strength). Mild numbness about the lateral femoral cutaneous nerve distribution bilaterally. Const Vital Signs, click to edit/add: Vital Signs - 24 hr 02/02/23 14:35 02/02/23 14:40 02/02/23 14:45 Temperature 97.6 F Pulse Rate 80 74 72 Pulse Rate [Pulse Oximeter] Respiratory Rate 18 18 18 Blood Pressure 102/60 82/49 L 93/50 L Blood Pressure [Left Arm] Blood Pressure [Right Arm] Pulse Oximetry 97 96 95 Oxygen Delivery Method Nasal Cannula Nasal Cannula Nasal Cannula Oxygen Flow Rate 3 3 3 02/02/23 14:50 02/02/23 14:55 02/02/23 15:00 Temperature Pulse Rate 72 72 71 Pulse Rate [Pulse Oximeter] Respiratory Rate 18 18 18 Blood Pressure 84/46 L 79/63 L 98/56 L Blood Pressure [Left Arm] Blood Pressure [Right Arm] Pulse Oximetry 95 95 98 Oxygen Delivery Method Nasal Cannula Nasal Cannula Nasal Cannula Oxygen Flow Rate 3 3 3 02/02/23 15:05 02/02/23 15:10 02/02/23 15:15 Temperature 97.6 F 97.4 F L Pulse Rate 71 71 77 Pulse Rate [Pulse Oximeter] Respiratory Rate 18 18 18 Blood Pressure 86/57 L 96/55 L 90/48 L Blood Pressure [Left Arm] Blood Pressure [Right Arm] Pulse Oximetry 98 98 98 Oxygen Delivery Method Nasal Cannula Nasal Cannula Nasal Cannula Oxygen Flow Rate 3 3 3 02/02/23 15:20 02/02/23 15:23 02/02/23 15:26 Temperature Pulse Rate 77 80 80 Pulse Rate [Pulse Oximeter] Respiratory Rate 18 18 18 Blood Pressure 93/65 89/53 L 86/52 L Blood Pressure [Left Arm] Blood Pressure [Right Arm] Pulse Oximetry 98 100 99 Oxygen Delivery Method Nasal Cannula Nasal Cannula Nasal Cannula Oxygen Flow Rate 3 3 3 02/02/23 15:30 02/02/23 15:32 02/02/23 15:35 Temperature 97.4 F L 96.1 F L Pulse Rate 71 70 82 Pulse Rate [Pulse Oximeter] Respiratory Rate 18 18 14 Blood Pressure 99/50 L 101/62 Blood Pressure [Left Arm] Blood Pressure [Right Arm] 96/57 L Pulse Oximetry 95 99 Oxygen Delivery Method Nasal Cannula Nasal Cannula Nasal Cannula Oxygen Flow Rate 3 3 3 02/02/23 15:45 02/02/23 16:00 02/02/23 16:15 Temperature 95.8 F L Pulse Rate Pulse Rate [Pulse Oximeter] 79 63 65 Respiratory Rate 14 14 14 Blood Pressure Blood Pressure [Left Arm] Blood Pressure [Right Arm] 100/51 L 90/53 L 97/52 L Pulse Oximetry 99 94 99 Oxygen Delivery Method Nasal Cannula Nasal Cannula Nasal Cannula Oxygen Flow Rate 2 1 02/02/23 16:30 02/02/23 17:00 02/02/23 17:30 Temperature 95.5 F L 95.5 F L Pulse Rate Pulse Rate [Pulse Oximeter] 83 75 68 Respiratory Rate 14 16 16 Blood Pressure Blood Pressure [Left Arm] Blood Pressure [Right Arm] 88/54 L 96/68 115/59 L Pulse Oximetry 97 98 99 Oxygen Delivery Method Nasal Cannula Nasal Cannula Nasal Cannula Oxygen Flow Rate 2 2 1 02/02/23 18:00 02/02/23 19:00 02/02/23 22:00 Temperature 95.9 F L 96.8 F L Pulse Rate Pulse Rate [Pulse Oximeter] 69 66 80 Respiratory Rate 16 16 18 Blood Pressure Blood Pressure [Left Arm] 95/61 Blood Pressure [Right Arm] 95/59 L 95/61 Pulse Oximetry 93 94 99 Oxygen Delivery Method Nasal Cannula Nasal Cannula Nasal Cannula Oxygen Flow Rate 1 1 1 02/02/23 23:00 02/02/23 23:00 02/03/23 03:00 Temperature 97.3 F L 98.1 F Pulse Rate Pulse Rate [Pulse Oximeter] 99 99 97 Respiratory Rate 18 18 Blood Pressure Blood Pressure [Left Arm] 105/64 108/64 Blood Pressure [Right Arm] Pulse Oximetry 96 98 Oxygen Delivery Method Room Air Room Air Oxygen Flow Rate 02/03/23 07:53 Temperature 98.1 F Pulse Rate Pulse Rate [Pulse Oximeter] 79 Respiratory Rate 16 Blood Pressure Blood Pressure [Left Arm] 114/68 Blood Pressure [Right Arm] Pulse Oximetry 98 Oxygen Delivery Method Room Air Oxygen Flow Rate Assessment and Plan Assessment and plan (1) Bilateral hip joint arthritis: Problem details: Status post bilateral total hip arthroplasty 02/02/[address] Salamanca Status: Acute (2) Blood loss anemia: Problem details: Hypotension and blood loss anemia due to bilateral hip surgery. Fluid resuscitation and blood if necessary. Hold antihypertensives. Status: Acute (3) Postoperative hypotension: Problem details: Likely due to blood loss. Fluid and blood resuscitation as needed - Doing better this morning; was up with therapy without lightheadedness. Status: Acute (4) Obstructive sleep apnea syndrome: Problem details: Monitor respiratory status with resuscitation, blood loss, pain medications Status: Acute Plan - Complete 23 hour perioperative antibiotics. - PT/OT consult for education and assistance. - Social work consult for discharge planning - Prescribed analgesics as needed - DVT prophylaxis: rivaroxaban, bilateral knee high Neal Hose stockings and SCDs - It is reasonable to have the patient stay 1 more night for recovery; will see how his hemoglobin is doing in the morning. Anticipation is for discharge to home with spouse 02/04/23 if the patient remains medically stable, pain is controlled, and they are safe with mobilization.
--- NOTE | 2023-02-03 12:09 | PM.IMPN1 ---
Progress Note: A&P Assessment and plan (1) S/P total hip arthroplasty: Problem details: Bilateral total hips by Dr. Feng, . Status: Acute (2) Blood loss anemia: Problem details: Hypotension and blood loss anemia due to bilateral hip surgery. Fluid resuscitation and blood if necessary. Hold antihypertensives. Status: Acute (3) Postoperative hypotension: Problem details: Likely due to blood loss. Fluid and blood resuscitation as needed - Doing better this morning; was up with therapy without lightheadedness. Status: Resolved (4) Bilateral hip joint arthritis: Problem details: Status post bilateral total hip arthroplasty 02/02/[address] 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 He was dizzy with standing yesterday post op, but denies dizziness this morning while ambulating to the bathroom. He also had urinary retention overnight. He denies any chest pain or shortness of breath. He notes he has a strong family history of heart disease with a mother who of a heart attack at age 57 and 6 siblings all with heart disease as well. So far he has been spared. He notes pain in both hips, but also tells me that he just got a pain pill. Exam Narrative: Exam Narrative: General: No acute distress. Awake, alert, oriented x3. No pallor. No jaundice. Oropharynx: Clear. Mucous membranes moist. Cardiovascular: Regular rate and rhythm. No murmurs, gallops, or rubs. Respiratory: Clear to auscultation bilaterally. No wheezes or crackles. Abdomen: Bowel sounds present. Soft, nondistended, nontender. Extremities: Bilateral hip bandages are clean, dry, and intact. No pedal edema. Const: Vital Signs, click to edit/add: Vital Signs - 24 hr 02/02/23 14:35 02/02/23 14:40 02/02/23 14:45 Temperature 97.6 F Pulse Rate 80 74 72 Pulse Rate [Pulse Oximeter] Respiratory Rate 18 18 18 Blood Pressure 102/60 82/49 L 93/50 L Blood Pressure [Le ft Arm] Blood Pressure [Ri ght Arm] Pulse Oximetry 97 96 95 Oxygen Delivery Me thod Nasal Cannula Nasal Cannula Nasal Cannula Oxygen Flow Rate 3 3 3 02/02/23 14:50 02/02/23 14:55 02/02/23 15:00 Temperature Pulse Rate 72 72 71 Pulse Rate [Pulse Oximeter] Respiratory Rate 18 18 18 Blood Pressure 84/46 L 79/63 L 98/56 L Blood Pressure [Le ft Arm] Blood Pressure [Ri ght Arm] Pulse Oximetry 95 95 98 Oxygen Delivery Me thod Nasal Cannula Nasal Cannula Nasal Cannula Oxygen Flow Rate 3 3 3 02/02/23 15:05 02/02/23 15:10 02/02/23 15:15 Temperature 97.6 F 97.4 F L Pulse Rate 71 71 77 Pulse Rate [Pulse Oximeter] Respiratory Rate 18 18 18 Blood Pressure 86/57 L 96/55 L 90/48 L Blood Pressure [Le ft Arm] Blood Pressure [Ri ght Arm] Pulse Oximetry 98 98 98 Oxygen Delivery Me thod Nasal Cannula Nasal Cannula Nasal Cannula Oxygen Flow Rate 3 3 3 02/02/23 15:20 02/02/23 15:23 02/02/23 15:26 Temperature Pulse Rate 77 80 80 Pulse Rate [Pulse Oximeter] Respiratory Rate 18 18 18 Blood Pressure 93/65 89/53 L 86/52 L Blood Pressure [Le ft Arm] Blood Pressure [Ri ght Arm] Pulse Oximetry 98 100 99 Oxygen Delivery Me thod Nasal Cannula Nasal Cannula Nasal Cannula Oxygen Flow Rate 3 3 3 02/02/23 15:30 02/02/23 15:32 02/02/23 15:35 Temperature 97.4 F L 96.1 F L Pulse Rate 71 70 82 Pulse Rate [Pulse Oximeter] Respiratory Rate 18 18 14 Blood Pressure 99/50 L 101/62 Blood Pressure [Le ft Arm] Blood Pressure [Ri ght Arm] 96/57 L Pulse Oximetry 95 99 Oxygen Delivery Me thod Nasal Cannula Nasal Cannula Nasal Cannula Oxygen Flow Rate 3 3 3 02/02/23 15:45 02/02/23 16:00 02/02/23 16:15 Temperature 95.8 F L Pulse Rate Pulse Rate [Pulse Oximeter] 79 63 65 Respiratory Rate 14 14 14 Blood Pressure Blood Pressure [Le ft Arm] Blood Pressure [Ri ght Arm] 100/51 L 90/53 L 97/52 L Pulse Oximetry 99 94 99 Oxygen Delivery Me thod Nasal Cannula Nasal Cannula Nasal Cannula Oxygen Flow Rate 2 1 02/02/23 16:30 02/02/23 17:00 02/02/23 17:30 Temperature 95.5 F L 95.5 F L Pulse Rate Pulse Rate [Pulse Oximeter] 83 75 68 Respiratory Rate 14 16 16 Blood Pressure Blood Pressure [Le ft Arm] Blood Pressure [Ri ght Arm] 88/54 L 96/68 115/59 L Pulse Oximetry 97 98 99 Oxygen Delivery Me thod Nasal Cannula Nasal Cannula Nasal Cannula Oxygen Flow Rate 2 2 1 02/02/23 18:00 02/02/23 19:00 02/02/23 22:00 Temperature 95.9 F L 96.8 F L Pulse Rate Pulse Rate [Pulse Oximeter] 69 66 80 Respiratory Rate 16 16 18 Blood Pressure Blood Pressure [Le ft Arm] 95/61 Blood Pressure [Ri ght Arm] 95/59 L 95/61 Pulse Oximetry 93 94 99 Oxygen Delivery Me thod Nasal Cannula Nasal Cannula Nasal Cannula Oxygen Flow Rate 1 1 1 02/02/23 23:00 02/02/23 23:00 02/03/23 03:00 Temperature 97.3 F L 98.1 F Pulse Rate Pulse Rate [Pulse Oximeter] 99 99 97 Respiratory Rate 18 18 Blood Pressure Blood Pressure [Le ft Arm] 105/64 108/64 Blood Pressure [Ri ght Arm] Pulse Oximetry 96 98 Oxygen Delivery Me thod Room Air Room Air Oxygen Flow Rate 02/03/23 07:53 02/03/23 11:00 Temperature 98.1 F 99.0 F Pulse Rate Pulse Rate [Pulse Oximeter] 79 77 Respiratory Rate 16 18 Blood Pressure Blood Pressure [Le ft Arm] 114/68 Blood Pressure [Ri ght Arm] 116/59 L Pulse Oximetry 98 95 Oxygen Delivery Me thod Room Air Room Air Oxygen Flow Rate Labs Labs: Laboratory Results - last 24 hr 02/02/23 02/03/23 18:12 06:40 WBC 10.28 RBC 3.08 L Hgb 10.7 L 8.9 L Hct 27.0 L MCV 88 MCH 29 MCHC 33 RDW Coeff of [place] 14.4 Plt Count 211 Neut % (Auto) 82.9 H Lymph % (Auto) 8.8 L [place] % (Auto) 7.9 Eos % (Auto) 0.0 Baso % (Auto) 0.0 Neut # (Auto) 8.50 H Lymph # (Auto) 0.90 [place] # (Auto) 0.80 Eos # (Auto) 0.00 Baso # (Auto) 0.00 Sodium 130 L Potassium 4.9 BUN 30 Creatinine 1.2 Estimated Creat Clear 64.13 Estimated GFR 70
[2023-02-03] MEDS: TAMSULOSIN HCL 0.4 MG CAPSULE PO (12:17)
[2023-02-03] MEDS: DOCUSATE SODIUM 100 MG CAPSULE PO (16:13)
--- NOTE | 2023-02-03 18:15 | PC.NURSE ---
Pt A&O. A1 w/ walker and gait belt. Ambulated in jeter x3. No longer dizzy/lightheaded with ambulation. Pt has been rating pain at a moderate level. PRN Vistaril and [place] given with relief. PRN [place] Q6H, pt complained of increase pain before next dose. PA contacted, see orders. Dressings to bilateral hips c/d/i. Pt companied of heartburn Maalox give x2 with relief. Denies d/v. Tolerating regular diet. at bedside.
[2023-02-04] VITALS (9 sets, daily range): BP systolic 99–130; BP diastolic 56–67; PULSE 69–98; RESP 16–18; TEMP 36.5–37.1; O2SAT 92–96
[2023-02-04] MEDS: HYDROCODONE-ACETAMIN 5-325 MG 1 TAB PO ×5 (00:43→15:30)
[2023-02-04] MEDS: hydrOXYzine pamoate 25 MG CAPSULE PO ×2 (00:44→03:47)
--- NOTE | 2023-02-04 06:00 | PC.NURSE ---
End of shift note: Pt alert and oriented, pleasant and cooperative. Vitals stable, aside from one softer BP (99/67-resolved) on RA, afebrile. CMS intact. Dressings to hips CDI. Ice packs applied to hips bilaterally. Tolerating walking in room and on unit with Ax1 w/ walker and gaitbelt. Voiding into urinal, passing flatus, no BM this shift. Initially rated pain fairly severe at start of shift, continued with PRN Atarax and [place] and pain improved and by midshift pt stated he felt a lot better, in early AM when up to use urinal pt c/o flushing but resolved quickly, BP was 99/67, but denied being lightheaded or dizzy, ?just feel hot?, BP rechecked soon after and 113/60, pt asymptomatic. Denies nausea, SOB and chest pain. Tolerating PO intake. Slept well in between cares. Hgb and BMP scheduled for this AM. Uses call light appropriately.??
[2023-02-04 07:03] LABS: Hemoglobin* 7.6 gm/dL (13.5-17.5)
[2023-02-04 07:21] LABS: Chloride* 94 mmol/L (96-114); Potassium* 4.5 mmol/L (3.6-5.1); Sodium* 128 mmol/L (135-149)
[2023-02-04 07:24] LABS: Blood Urea Nitrogen* 27 mg/dL (7-30); Carbon Dioxide* 27 mmol/L (20-32); Est. Creatinine Clearance* 76.95; Estimated Glomerular Filt Rate 87 ml/min; Glucose* 115 mg/dL (60-115)
[2023-02-04] MEDS: SENNOSIDES 1 TAB TABLET 2 TAB PO (08:37)
[2023-02-04] MEDS: allopurinoL 300 MG TABLET PO (08:38)
[2023-02-04] MEDS: CELECOXIB 200 MG CAPSULE PO (08:39)
[2023-02-04] MEDS: TAMSULOSIN HCL 0.4 MG CAPSULE PO (08:39)
[2023-02-04] MEDS: RIVAROXABAN 10 MG TABLET PO (08:39)
--- NOTE | 2023-02-04 09:22 | PC.SOCIAL ---
Met with pt in pt's room to discuss discharge plans. Pt states that pt is receiving blood and believes pt will discharge today. Pt states that he has assistance at home from pt's and daughter. Pt does not have any identified needs for social work. Informed pt that if he has any questions he may reach out to the social work department. Social work will follow up as necessary.
[2023-02-04] MEDS: FUROSEMIDE 10 MG/ML inj 20 MG IV (12:58)
[2023-02-04 13:48] LABS: Hemoglobin* 8.7 gm/dL (13.5-17.5)
--- NOTE | 2023-02-04 14:03 | P.DS_ITS ---
DS: Providers Provider Date Seen: 02/04/23 Date of admission: 02/03/23 11:36 Primary care physician: Law Carolina MD Admitting Clinician: Matthieu Salamanca MD Consults: 02/02/23 15:37 Consult to Occupational Therapy [CONS] Routine Comment: Reason(s) for OT Consult:: ADLs Prior to Discharge Any Restrictions?:: No Restrictions Comment: Consult to Physical Therapy [CONS] Routine Comment: Ambulate in the jeter today Reason(s) for PT Consult:: Evaluate and Treat Any Restrictions?:: No Restrictions Comment: Nursing Activity Consult to Physician [CONS] Routine Comment: Consulting Provider: Hospitalists Has provider been notified: No Consult to Obstetrics Tech [CONS] Routine Comment: Reason for Consult:: Discharge Planning Needs Attending Physician on discharge: Matthieu Salamanca MD Date of Discharge: 02/04/23 DS: Diagnosis Discharge Diagnosis (1) S/P total hip arthroplasty: Status: Acute Problem details: - Bilateral total hips by Dr. Feng, 02/02/23 (2) Blood loss anemia: Status: Acute Problem details: - Hgb shyam 7.6, received 1U PRBCs on 02/04/23; improved to 8.7 with 1 unit PRBC (3) Postoperative hypotension: Status: Resolved Problem details: - improved with IVF rehydration DS: Summary Hospital Course Hospital Course: The patient has a history of bilateral hip osteoarthritis and femoral acetabular impingement bilaterally. After appropriate preoperative evaluation, the patient underwent bilateral total hip arthroplasty. Postoperatively given anticoagulation for deep vein thrombosis prophylaxis - rivaroxaban. Initially, due to blood loss anemia, patient had intermittent hypertension, with appropriate responding tachycardia. Due to the blood loss anemia, patient was treated with IV fluids which improved his kidney function thus urine output. Eventually due to continued drop in hemoglobin by postop day 2 to 7.6, patient received 1 unit of PRBCs, which improved hemoglobin to 8.7. Throughout the end of postop day 1, and into postop day 2, patient was feeling better denying any lightheadedness/dizziness when ambulating. They progressed to PT/OT and were felt ready and prepared for discharge to home with appropriate pain medication and anticoagulation medications. Time Spent with Patient Time attestation: Total time spent providing and/or coordinating discharge services: Exam Narrative: Exam Narrative: Patient is sitting up in bed comfortably. CV: RRR, soft systolic murmur without concerning findings R: LCTA B Const: Vital Signs, click to edit/add: Vital Signs - 24 hr 02/03/23 16:10 02/03/23 19:30 02/03/23 23:00 Temperature 99.0 F 98.6 F Pulse Rate Pulse Rate [Pulse Oximeter] 83 98 98 Pulse Rate [Right Dorsalis Pedis] Respiratory Rate 16 18 18 Blood Pressure Blood Pressure [Ri ght Arm] 128/70 113/75 Pulse Oximetry 90 94 Oxygen Delivery Me thod Room Air Room Air 02/04/23 04:00 02/04/23 04:45 02/04/23 08:42 Temperature 98.4 F 98.4 F Pulse Rate Pulse Rate [Pulse Oximeter] 98 Pulse Rate [Right Dorsalis Pedis] 85 Respiratory Rate 18 16 Blood Pressure Blood Pressure [Ri ght Arm] 99/67 113/60 129/56 L Pulse Oximetry 94 95 Oxygen Delivery Me thod Room Air Room Air 02/04/23 10:22 02/04/23 10:39 02/04/23 10:39 Temperature 98.0 F 98.4 F 98.1 F Pulse Rate 75 74 69 Pulse Rate [Pulse Oximeter] Pulse Rate [Right Dorsalis Pedis] Respiratory Rate 16 16 16 Blood Pressure 118/59 L 101/62 101/62 Blood Pressure [Ri ght Arm] Pulse Oximetry 93 92 Oxygen Delivery Me thod 02/04/23 13:51 Temperature 98.7 F Pulse Rate 79 Pulse Rate [Pulse Oximeter] Pulse Rate [Right Dorsalis Pedis] Respiratory Rate 18 Blood Pressure 122/59 L Blood Pressure [Ri ght Arm] Pulse Oximetry Oxygen Delivery Me thod DS: Data Data Completed and Pending Labs on day of discharge: Labs from last 24 hours 02/04/23 02/04/23 13:34 06:10 Hgb 8.7 L 7.6 L* Sodium 128 L Potassium 4.5 Chloride 94 L Carbon Dioxide 27 BUN 27 Creatinine 1.0 Estimated Creat Clear 76.95 Estimated GFR 87 Glucose 115 Calcium 8.0 L Blood Type O Positive Antibody Screen NEGATIVE Crossmatch (AHG) See Detail Discharge Plan Discharge Disposition: Home, Self-Care Date of Admission: 02/03/23 11:36 Consulting Providers: Nicol Quiñones Primary Care Provider: Law Carolina Condition: Stable Anticipated Discharge Date/Time: 02/04/23 14:02 Discharge Medications: New sennosides-docusate sodium [Senna-S] 8.6-50 mg tablet 1 - 4 tab-cap PO BID PRN (Reason: constipation) Qty: 60 0RF Rx Instructions: Hold medication if experiencing loose stools. rivaroxaban 10 mg tablet 10 mg PO DAILY Qty: 3 0RF Rx Instructions: Medication for deep vein clot prevention post surgery. Complete this medication before starting Aspirin. hydrocodone-acetaminophen 5-325 mg tablet 1 - 2 tab PO Q4-6H PRN (Reason: pain) Qty: 42 0RF Rx Instructions: Take as needed for postop pain: 1 tablet for mild-moderate pain, 2 tablets for severe pain. Wean as tolerated. aspirin 81 mg tablet,delayed release (DR/EC) 81 mg PO BID Qty: 50 0RF Rx Instructions: Medication to help prevent blood clots postoperatively; take TWICE daily. Continued cholecalciferol (vitamin D3) 125 mcg (5,000 unit) tablet 5,000 unit PO DAILY sildenafil [Viagra] 100 mg tablet 100 mg PO QDAY PRN (Reason: sexual activity) Qty: 10 5RF Rx Instructions: administer 30 minutes to 4 hours before activity tamsulosin 0.4 mg capsule 0.4 mg PO DAILY Qty: 90 3RF oxybutynin chloride 10 mg tablet extended release 24hr 10 mg PO DAILY Qty: 90 3RF lisinopril 40 mg tablet 40 mg PO DAILY Qty: 90 3RF allopurinol 300 mg tablet 300 mg PO DAILY Qty: 90 3RF nitroglycerin 0.4 mg tablet, sublingual 1 mg sublingual Q5-15M PRN (Reason: chest pain) Qty: 20 2RF Repatha SureClick 140 mg/mL pen injector 140 mg subcut Q2W Qty: 6 3RF Held aspirin 325 mg tablet,delayed release (DR/EC) 325 mg PO DAILY Hold Instructions: restart when done with Xarelto Discontinued ibuprofen 800 mg tablet 800 mg PO TID PRN (Reason: pain) Qty: 270 3RF hydrocodone-acetaminophen 5-325 mg tablet 1 tab PO Q6H PRN (Reason: pain) Qty: 30 0RF Discharge Orders: Discharge Order (Routine); Ordered 02/04/23 Ordered By: Nicol Quiñones Patient Education: Acetaminophen (By mouth), Hydrocodone/Acetaminophen (By mouth) (Vicodin, [place], Lortab), Rivaroxaban (By mouth) (Xarelto, Xarelto Starter Pack), Senna (By mouth) (Sen, Senna-lax), Joint Replacement Surgery (DC), Total Hip Replacement (DC) Additional Instructions: Wound: ?Do not remove original dressing; we will remove this at first postop visit in 1 week. Only remove dressings if integrity is in question. ?No immersing wounds in water; showering okay; light scrub with your hand and body soap, rinse, dab dry ?Sutures are under the skin, will dissolve; allow surgical glue to come off naturally; do not scrub the wounds or apply ointments/lotions ?Call our office with any redness that streaks, excessive drainage from the wound, or wound gapping. Ice/Elevate: ?Ice as needed for swelling and discomfort (cryocuff or ice pack); elevate frequently above the heart NAVYA socks: ?Wear for 1 month, remove for 1 hour 3 times per day ?These are frustrating to take on/off, but are important for blood clot prevention for 1 month after surgery Blood Clot Prevention (DVT): ?Medication: Rivaroxaban, and transition to 81 mg aspirin by mouth twice daily (total one month of protection). Driving: ?Do not drive while taking narcotic pain medication ?Anticipate 4-6 weeks no driving Dental: ?No elective dental work for 6 months post-op. If there is an urgent/emergent dental need, contact our office for an antibiotic prescription. Smoking/Alcohol: ?Do not smoke; do no drink alcohol especially when taking postoperative oral narcotic medication Seek Care from you Primary Care Provider if you experience the following issues in the postoperative phase and beyond: ?Bacterial infections such as: pneumonia, bacterial skin infection (cellulitis), UTI, high fever, chills unrelated to the operative body part - call your primary care physician urgently for treatment in hopes to protect your health and the metal implant. Referrals: ?PT, OT per patient preference - evaluate treat bilateral total hip arthroplasty protocol (gait training, ROM, ADLs) for anterior approach Follow up: ?Ortho surgeon follow-up in 6 weeks; repeat radiographs AP pelvis, cross-table lateral bilateral hips ?PA-Karen visit in 1 week *If there are any acute concerns regarding your surgery, please call our orthopedic clinic ([phone]) PLEASE BUY OTC IRON SUPPLEMENTS AND TAKE 1-2 TIMES/DAILY WITH VITAMIN C Activity Level: Activity as Tolerated, Weight Bearing as Tolerated and Use Walker Discharge Diet: Regular Follow Up Appointments: Law Carolina MD [Primary Care Provider] - 02/11/23 10:00 am ([facility] in [place], d/c follow up, recheck Hgb, with Dr. 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
--- NOTE | 2023-02-04 15:02 | PM.ORPN ---
Subjective Subjective Date Seen: 02/04/23 Principal diagnosis: Status postop day 2, bilateral total hip arthroplasty - anterior approach Interval history: Patient reports doing better. No acute events over night. Per staff, there was evidence of postoperative blood loss anemia with symptoms of lightheadedness/dizziness when up and moving, intermittent soft blood pressures and hemoglobin of 7.6; thus, patient received unit of PRBC today. When I saw the patient this afternoon, he was still receiving the blood, and reported feeling well. Increasing [place] 2 tablets every 4-6 hours has been helpful for pain management. DVT prophylaxis rivaroxaban, bilateral knee high Neal stockings, and SCDs. Denies fevers, chills, aches, N/V, CP, SOB/SAL, tachycardia, tachypnea or lightheadedness. Ortho Exam Narrative Exam Narrative: -Patient appears comfortable in the bathroom; no apparent acute distress -Alert and oriented times 3 -bilateral hips mild-moderately swollen; soft tissues supple; no obvious erythema. Warmth appropriate -Surgical dressings clean, dry, intact; no obvious drainage, no erythematous streaking peripheral to the bandages -Bilateral calves soft and supple; no significant swelling, edema, tenderness, erythema, discoloration, warmth, or palpable cords -2+ DP/PT pulses, intact dermatomes and myotomes distally (5/5 strength). Mild numbness about the lateral femoral cutaneous nerve distribution. Const Vital Signs, click to edit/add: Vital Signs - 24 hr 02/03/23 16:10 02/03/23 19:30 02/03/23 23:00 Temperature 99.0 F 98.6 F Pulse Rate Pulse Rate [Pulse Oximeter] 83 98 98 Pulse Rate [Right Dorsalis Pedis] Respiratory Rate 16 18 18 Blood Pressure Blood Pressure [Right Arm] 128/70 113/75 Pulse Oximetry 90 94 Oxygen Delivery Method Room Air Room Air 02/04/23 04:00 02/04/23 04:45 02/04/23 08:42 Temperature 98.4 F 98.4 F Pulse Rate Pulse Rate [Pulse Oximeter] 98 Pulse Rate [Right Dorsalis Pedis] 85 Respiratory Rate 18 16 Blood Pressure Blood Pressure [Right Arm] 99/67 113/60 129/56 L Pulse Oximetry 94 95 Oxygen Delivery Method Room Air Room Air 02/04/23 10:22 02/04/23 10:39 02/04/23 10:39 Temperature 98.0 F 98.4 F 98.1 F Pulse Rate 75 74 69 Pulse Rate [Pulse Oximeter] Pulse Rate [Right Dorsalis Pedis] Respiratory Rate 16 16 16 Blood Pressure 118/59 L 101/62 101/62 Blood Pressure [Right Arm] Pulse Oximetry 93 92 Oxygen Delivery Method 02/04/23 13:51 02/04/23 14:43 Temperature 98.7 F 98.7 F Pulse Rate 79 79 Pulse Rate [Pulse Oximeter] Pulse Rate [Right Dorsalis Pedis] Respiratory Rate 18 18 Blood Pressure 122/59 L 122/59 L Blood Pressure [Right Arm] Pulse Oximetry Oxygen Delivery Method Assessment and Plan Assessment and plan (1) S/P total hip arthroplasty: Problem details: - Bilateral total hips by Dr. Feng, 02/02/23 Status: Acute (2) Blood loss anemia: Problem details: - Hgb shyam 7.6, received 1U PRBCs on 02/04/23; Status: Acute (3) Postoperative hypotension: Problem details: - improved with IVF rehydration Status: Resolved Plan - Complete 23 hour perioperative antibiotics. - PT/OT consult for education and assistance. - Social work consult for discharge planning - Prescribed analgesics as needed - DVT prophylaxis: Rivaroxaban, bilateral knee high Neal Hose stockings and SCDs - Anticipation is for discharge to home with spouse today, 02/04/2023 if the patient remains medically stable, pain is controlled, and they are safe with mobilization. When communicating with patient and hospitalist, we feel it is safe for patient to return to home today 02/04/2023 with help from family, as his symptoms are greatly improving from acute blood-loss anemia, there is no evidence of current bleed, and he responded well with a unit of PRBC.
--- NOTE | 2023-02-04 15:09 | P.DS_ITS ---
DS: Providers Provider Date Seen: 02/04/23 Date of admission: 02/03/23 11:36 Primary care physician: Law Carolina MD Admitting Clinician: Matthieu Salamanca MD Consults: 02/02/23 15:37 Consult to Occupational Therapy [CONS] Routine Comment: Reason(s) for OT Consult:: ADLs Prior to Discharge Any Restrictions?:: No Restrictions Comment: Consult to Physical Therapy [CONS] Routine Comment: Ambulate in the jeter today Reason(s) for PT Consult:: Evaluate and Treat Any Restrictions?:: No Restrictions Comment: Nursing Activity Consult to Physician [CONS] Routine Comment: Consulting Provider: Hospitalists Has provider been notified: No Consult to Senior Quality Manager [CONS] Routine Comment: Reason for Consult:: Discharge Planning Needs Attending Physician on discharge: Matthieu Salamanca MD Date of Discharge: 02/04/23 DS: Diagnosis Discharge Diagnosis (1) S/P total hip arthroplasty: Status: Acute Problem details: - Bilateral total hips by Dr. Feng, 02/02/23 (2) Blood loss anemia: Status: Acute Problem details: - Hgb shyam 7.6, received 1U PRBCs on 02/04/23; improved to 8.7 with 1 unit PRBC (3) Postoperative hypotension: Status: Resolved Problem details: - improved with IVF rehydration DS: Summary Hospital Course Hospital Course: The patient has a history of bilateral hip osteoarthritis and femoral acetabular impingement bilaterally. After appropriate preoperative evaluation, the patient underwent bilateral total hip arthroplasty. Postoperatively given anticoagulation for deep vein thrombosis prophylaxis - rivaroxaban. Initially, due to blood loss anemia, patient had intermittent hypertension, with appropriate responding tachycardia. Due to the blood loss anemia, patient was treated with IV fluids which improved his kidney function thus urine output. Eventually due to continued drop in hemoglobin by postop day 2 to 7.6, patient received 1 unit of PRBCs, which improved hemoglobin to 8.7. Throughout the end of postop day 1, and into postop day 2, patient was feeling better denying any lightheadedness/dizziness when ambulating. They progressed to PT/OT and were felt ready and prepared for discharge to home with appropriate pain medication and anticoagulation medications. Status at Discharge Functional status at discharge: uses cane/walker Overall status at discharge: patient is progressing back to baseline Time Spent with Patient Time attestation: Total time spent providing and/or coordinating discharge services: Time spent: Greater than 30 minutes Exam Const: Vital Signs, click to edit/add: Vital Signs - 24 hr 02/03/23 16:10 02/03/23 19:30 02/03/23 23:00 Temperature 99.0 F 98.6 F Pulse Rate Pulse Rate [Pulse Oximeter] 83 98 98 Pulse Rate [Right Dorsalis Pedis] Respiratory Rate 16 18 18 Blood Pressure Blood Pressure [Ri ght Arm] 128/70 113/75 Pulse Oximetry 90 94 Oxygen Delivery Me thod Room Air Room Air 02/04/23 04:00 02/04/23 04:45 02/04/23 08:42 Temperature 98.4 F 98.4 F Pulse Rate Pulse Rate [Pulse Oximeter] 98 Pulse Rate [Right Dorsalis Pedis] 85 Respiratory Rate 18 16 Blood Pressure Blood Pressure [Ri ght Arm] 99/67 113/60 129/56 L Pulse Oximetry 94 95 Oxygen Delivery Me thod Room Air Room Air 02/04/23 10:22 02/04/23 10:39 02/04/23 10:39 Temperature 98.0 F 98.4 F 98.1 F Pulse Rate 75 74 69 Pulse Rate [Pulse Oximeter] Pulse Rate [Right Dorsalis Pedis] Respiratory Rate 16 16 16 Blood Pressure 118/59 L 101/62 101/62 Blood Pressure [Ri ght Arm] Pulse Oximetry 93 92 Oxygen Delivery Me thod 02/04/23 13:51 02/04/23 14:43 Temperature 98.7 F 98.7 F Pulse Rate 79 79 Pulse Rate [Pulse Oximeter] Pulse Rate [Right Dorsalis Pedis] Respiratory Rate 18 18 Blood Pressure 122/59 L 122/59 L Blood Pressure [Ri ght Arm] Pulse Oximetry Oxygen Delivery Me thod DS: Data Data Completed and Pending Labs on day of discharge: Labs from last 24 hours 02/04/23 02/04/23 13:34 06:10 Hgb 8.7 L 7.6 L* Sodium 128 L Potassium 4.5 Chloride 94 L Carbon Dioxide 27 BUN 27 Creatinine 1.0 Estimated Creat Clear 76.95 Estimated GFR 87 Glucose 115 Calcium 8.0 L Blood Type O Positive Antibody Screen NEGATIVE Crossmatch (AHG) See Detail Discharge Plan Discharge Disposition: Home, Self-Care Date of Admission: 05/02/23 11:36 Consulting Providers: Nicol Quiñones Primary Care Provider: Law Carolina Condition: Stable Anticipated Discharge Date/Time: 02/04/23 14:02 Discharge Medications: New sennosides-docusate sodium [Senna-S] 8.6-50 mg tablet 1 - 4 tab-cap PO BID PRN (Reason: constipation) Qty: 60 0RF Rx Instructions: Hold medication if experiencing loose stools. acetaminophen 500 mg capsule 500 - 1,000 mg PO Q6H MDD 4000mg PRNQty: 100 0RF rivaroxaban 10 mg tablet 10 mg PO DAILY Qty: 3 0RF Rx Instructions: Medication for deep vein clot prevention post surgery. Complete this medication before starting Aspirin. hydrocodone-acetaminophen 5-325 mg tablet 1 - 2 tab PO Q4-6H PRN (Reason: pain) Qty: 42 0RF Rx Instructions: Take as needed for postop pain: 1 tablet for mild-moderate pain, 2 tablets for severe pain. Wean as tolerated. aspirin 81 mg tablet,delayed release (DR/EC) 81 mg PO BID Qty: 50 0RF Rx Instructions: Medication to help prevent blood clots postoperatively; take TWICE daily. Continued cholecalciferol (vitamin D3) 125 mcg (5,000 unit) tablet 5,000 unit PO DAILY sildenafil [Viagra] 100 mg tablet 100 mg PO QDAY PRN (Reason: sexual activity) Qty: 10 5RF Rx Instructions: administer 30 minutes to 4 hours before activity tamsulosin 0.4 mg capsule 0.4 mg PO DAILY Qty: 90 3RF oxybutynin chloride 10 mg tablet extended release 24hr 10 mg PO DAILY Qty: 90 3RF lisinopril 40 mg tablet 40 mg PO DAILY Qty: 90 3RF allopurinol 300 mg tablet 300 mg PO DAILY Qty: 90 3RF nitroglycerin 0.4 mg tablet, sublingual 1 mg sublingual Q5-15M PRN (Reason: chest pain) Qty: 20 2RF Repatha SureClick 140 mg/mL pen injector 140 mg subcut Q2W Qty: 6 3RF Held aspirin 325 mg tablet,delayed release (DR/EC) 325 mg PO DAILY Hold Instructions: restart when done with Xarelto Discontinued ibuprofen 800 mg tablet 800 mg PO TID PRN (Reason: pain) Qty: 270 3RF hydrocodone-acetaminophen 5-325 mg tablet 1 tab PO Q6H PRN (Reason: pain) Qty: 30 0RF Discharge Orders: Discharge Order (Routine); Ordered 02/04/23 Ordered By: Nicol Quiñones Patient Education: Acetaminophen (By mouth), Hydrocodone/Acetaminophen (By mouth) (Vicodin, [place], Lortab), Rivaroxaban (By mouth) (Xarelto, Xarelto Starter Pack), Senna (By mouth) (Sen, Senna-lax), Joint Replacement Surgery (DC), Total Hip Replacement (DC) Additional Instructions: Wound: ?Do not remove original dressing; we will remove this at first postop visit in 1 week. Only remove dressings if integrity is in question. ?No immersing wounds in water; showering okay; light scrub with your hand and body soap, rinse, dab dry ?Sutures are under the skin, will dissolve; allow surgical glue to come off naturally; do not scrub the wounds or apply ointments/lotions ?Call our office with any redness that streaks, excessive drainage from the wound, or wound gapping. Ice/Elevate: ?Ice as needed for swelling and discomfort (cryocuff or ice pack); elevate frequently above the heart NAVYA socks: ?Wear for 1 month, remove for 1 hour 3 times per day ?These are frustrating to take on/off, but are important for blood clot prevention for 1 month after surgery Blood Clot Prevention (DVT): ?Medication: Rivaroxaban, and transition to 81 mg aspirin by mouth twice daily (total one month of protection). Driving: ?Do not drive while taking narcotic pain medication ?Anticipate 4-6 weeks no [address] Dental: ?No elective dental work for 6 months post-op. If there is an urgent/emergent dental need, contact our office for an antibiotic prescription. Smoking/Alcohol: ?Do not smoke; do no drink alcohol especially when taking postoperative oral narcotic medication Seek Care from you Primary Care Provider if you experience the following issues in the postoperative phase and beyond: ?Bacterial infections such as: pneumonia, bacterial skin infection (cellulitis), UTI, high fever, chills unrelated to the operative body part - call your primary care physician urgently for treatment in hopes to protect your health and the metal implant. Referrals: ?PT, OT per patient preference - evaluate treat bilateral total hip arthroplasty protocol (gait training, ROM, ADLs) for anterior approach Follow up: ?Ortho surgeon follow-up in 6 weeks; repeat radiographs AP pelvis, cross-table lateral bilateral hips ?PA-C visit in 1 week *If there are any acute concerns regarding your surgery, please call our orthopedic clinic ([phone]) PLEASE BUY OTC IRON SUPPLEMENTS AND TAKE 1-2 TIMES/DAILY WITH VITAMIN C Activity Level: Activity as Tolerated, Weight Bearing as Tolerated and Use Walker Discharge Diet: Regular Follow Up Appointments: Law Carolina MD [Primary Care Provider] - 02/11/23 10:00 am ([facility] in [place], d/c follow up, recheck Hgb, with Dr. Carloina.) Fercho Reddy PA-C [Physician Splitter Tender] - 02/12/23 8:50 am ([facility] in [place] follow up with Fercho TSAI) [facility]: [facility] Info Instructions
--- NOTE | 2023-02-04 16:00 | PC.NURSE ---
shift note: vss stable. pt afeb. pt up 1/walker with slow steady gait. PP+ bilat. Pt rating bilat thigh pain 2-6/10. Pt states PRN [place] elevates pain level. Ice applied to bilat thigh/hip. Bilat drsg to hi/thigh c/d/i. Pt received 1 unit PRB with no s/e. LS clr. Pt indept with IS. Reviewed dc instructions with pt and his spouse. Questions addressed. Belongings sent with pt at dc. IV removed intact Lt hand. Pt had moderate soft BM.
== END 2023-02-04 16:03 | disposition home or self-care (01) | DRG 301 ==
LOC: OR 11:56 → MEDSURG 11:56
PROVIDERS: Family Medicine; Admitting Provider Orthopaedic Surgery Sports Medicine; PCP Family Medicine; Visit Provider Orthopaedic Surgery Sports Medicine
PROC: 0SR90JZ Replacement of Right Hip Joint with Synthetic Substitute, Open Approach (ICD-10-PCS; CPT 27130; principal; 2023-02-02 09:30)
DX: M16.0 Bilateral primary osteoarthritis of hip (principal); I95.81 Postprocedural hypotension; D62 Acute posthemorrhagic anemia; R42 Dizziness and giddiness; G89.18 Other acute postprocedural pain; G47.33 Obstructive sleep apnea (adult) (pediatric); Z82.49 Family history of ischemic heart disease and other diseases of the circulatory system; I25.10 Atherosclerotic heart disease of native coronary artery without angina pectoris; I10 Essential (primary) hypertension; E78.5 Hyperlipidemia, unspecified; M51.36 Other intervertebral disc degeneration, lumbar region; M10.9 Gout, unspecified; M25.852 Other specified joint disorders, left hip; M25.851 Other specified joint disorders, right hip
CPT/HCPCS: 01214; 36415; 36430; 64450; 73501; 76000; 76942; 80048; 82565; 84132; 84295; 84520; 85018; 85025; 86850; 86900; 86901; 86922; 97110; 97116; 97162; 97165; 97530; 97535; A9270; C1776; C9290; J0171; J0690; J1100; J1170; J1940; J2250; J2370; J2405; J2704; J2710; J3010; J3475; J3490; J7120; P9016

== ENCOUNTER 2023-07-27 10:20 | Outpatient (CLI) | payer BC, SELFPAY ==
--- NOTE | 2023-07-27 11:24 | W.ANESCHARGE ---
Anesthesia Charges Start Date/Time Anesthesia Start Date: 07/27/23 Anesthesia Start Time: 10:58 Stop Date/Time Anesthesia Stop Date: 07/27/23 Anesthesia Stop Time: 11:20
== END 2023-07-27 10:21 | disposition home or self-care (01) ==
LOC: OP CLINIC 10:20
PROVIDERS: PCP Family Medicine; Visit Provider Internal Medicine
DX: Z12.11 Encounter for screening for malignant neoplasm of colon (principal); K57.30 Diverticulosis of large intestine without perforation or abscess without bleeding
CPT/HCPCS: 00812; 45378; J2704

== ENCOUNTER 2023-10-01 07:54 | Outpatient (CLI) | payer BC, SELFPAY | END 2023-10-01 07:55 | disposition home or self-care (01) | PROVIDERS: PCP Family Medicine; Visit Provider Family Medicine | DX: Z00.00 Encounter for general adult medical examination without abnormal findings (principal); I10 Essential (primary) hypertension; E78.2 Mixed hyperlipidemia; Z12.5 Encounter for screening for malignant neoplasm of prostate | CPT/HCPCS: 80048; 80061; 84153 ==

== ENCOUNTER 2024-10-04 08:37 | Outpatient (CLI) | payer BC, SELFPAY | END 2024-10-04 08:38 | disposition home or self-care (01) | PROVIDERS: PCP Family Medicine; Visit Provider Family Medicine | DX: E78.2 Mixed hyperlipidemia (principal); Z86.2 Personal history of diseases of the blood and blood-forming organs and certain disorders involving the immune mechanism; Z12.5 Encounter for screening for malignant neoplasm of prostate | CPT/HCPCS: 80048; 80061; 84460; 85025; G0103 ==

== ENCOUNTER 2025-10-04 09:04 | Outpatient (CLI) | payer BC, SELFPAY | END 2025-10-04 09:05 | disposition home or self-care (01) | PROVIDERS: PCP Family Medicine; Visit Provider Family Medicine | DX: I10 Essential (primary) hypertension (principal); E78.2 Mixed hyperlipidemia; Z12.5 Encounter for screening for malignant neoplasm of prostate; M10.9 Gout, unspecified; N40.0 Benign prostatic hyperplasia without lower urinary tract symptoms | CPT/HCPCS: 80048; 80061; 84460; 85025; G0103 ==